=== PATIENT | female | born 1975 | race Caucasian/White ===

== ENCOUNTER 2020-01-04 19:39 | Emergency (ER) | payer OTHER, SELFPAY ==
--- NOTE | ~2020-01-04 | XR_ITS ---
EXAMINATION: XR finger 1st LT min 2V DATE: 01/04/2020 20:00 INDICATION: Left thumb pain. Injury. TECHNIQUE: 3 views of left thumb were obtained. COMPARISON: None. FINDINGS: Bone alignment is normal. No fracture. There is mild osteoarthritis of first interphalangea l joint. There is a laceration of the pulmonary surface of the thumb. IMPRESSION: 1. No fracture or radiopaque foreign body. Reviewed, dictated and finalized at location A.
[2020-01-04 19:42] VITALS: BP 193/105; PULSE 104; RESP 18; TEMP 36.9; O2SAT 100
--- NOTE | 2020-01-04 19:51 | ED.GENADULT ---
HPI - General Adult General Chief complaint: Wound/Laceration Stated complaint: laceration Time Seen by Provider: 01/04/20 19:42 Source: patient Mode of arrival: ambulatory Limitations: no limitations History of Present Illness HPI narrative: Patient is a 44-year-old female who presents to emergency department for evaluation of injury to the left thumb noting she caught the thumb in the door. Patient notes her tetanus is up-to-date. Patient notes moderate aching pain with laceration. Patient presents immediately after the injury denies other complaints Related Data Allergies Allergy/AdvReac Type Severity Reaction Status Date / Time No Known Allergies Allergy Unverified 06/05/19 08:19 Review of Systems Review of Systems: Narrative: CONSTITUTIONAL: Denies fever, chills, or sweats. SKIN: Positive for laceration and contusion MUSCULOSKELETAL: Positive for left THUMB pain NEUROLOGIC: Denies numbness, or weakness. [facility] Past Medical History Medical History (Updated 01/04/20 @ 20:23 by Saad Mckeon PA-C) Hypertension Social History Social History Gender identity (if verbalized by the patient): Female Exam Narrative: Exam Narrative: GENERAL: Well-appearing, well-nourished, and in no acute distress. HEAD: Normocephalic, atraumatic. EYES: PERRLA and EOMI. ENT: Nares clear, no rhinorrhea or epistaxis. Mucous membranes moist. EXTREMITIES: Normal range of motion. No edema. Laceration and contusion of the palmar surface of the left mid thumb laceration is irregular with blood blister distal of the laceration measuring half centimeter SKIN: Warm, dry, no rash. NEURO: No focal deficits. Alert and oriented x3. Neurovascularly intact PSYCH: Normal mood and affect. Course Vital Signs Vital signs: Vital Signs Temperature 98.4 F 01/04/20 19:42 Pulse Rate 104 H 01/04/20 19:42 Respiratory Rate 18 01/04/20 19:42 Blood Pressure 193/105 H 01/04/20 19:42 Pulse Oximetry 100 01/04/20 19:42 Temperature 98.4 F 01/04/20 19:42 Pulse Rate 104 H 01/04/20 19:42 Respiratory Rate 18 01/04/20 19:42 Blood Pressure 193/105 H 01/04/20 19:42 Pulse Oximetry 100 01/04/20 19:42 Procedures Other Procedure Procedure 1: Other Procedure: Patient's wound with blistering and superficial tissue devitalized moved half a centimeter of devitalized tissue with scissors and pickups. Shur-Clens scrub was used antibiotic ointment nonadhesive 4 x 4 and Coban placed post procedure Medical Decision Making Vital Signs Vital Signs: Vital Signs Temperature 98.4 F 01/04/20 19:42 Pulse Rate 104 H 01/04/20 19:42 Respiratory Rate 18 01/04/20 19:42 Blood Pressure 193/105 H 01/04/20 19:42 Pulse Oximetry 100 01/04/20 19:42 Temperature 98.4 F 01/04/20 19:42 Pulse Rate 104 H 01/04/20 19:42 Respiratory Rate 18 01/04/20 19:42 Blood Pressure 193/105 H 01/04/20 19:42 Pulse Oximetry 100 01/04/20 19:42 Imaging Data Radiologist's impression: ITS Impressions Finger X-Ray 01/04/20 20:04 IMPRESSION: 1. No fracture or radiopaque foreign body. Discharge Plan Discharge Clinical Impression: Avulsion of skin Patient Disposition: Home, Self-Care Condition: Stable Instructions: Antibiotic Form, Skin Avulsion (ED) Additional Instructions: Keep wound clean and dry. Do not soak, take baths, or swim until wound is completely healed. If any signs of infection such as redness, swelling, increasing pain, drainage of purulent discharge, streaks up your extremity develop, seek medical attention immediately. Followup with your primary care provider in 7 days for reevaluation as needed [] Follow-up/Referrals: Deyvi,Marcy Nelson MD [Primary Care Provider] -
[2020-01-04 20:31] VITALS: BP 173/98; PULSE 84; RESP 18; O2SAT 98
== END 2020-01-04 20:33 | disposition home or self-care (01) ==
PROVIDERS: Emergency Provider Emergency Medicine; PCP Family Medicine
DX: S61.012A Laceration without foreign body of left thumb without damage to nail, initial encounter (principal); I10 Essential (primary) hypertension; W23.0XXA Caught, crushed, jammed, or pinched between moving objects, initial encounter
CPT/HCPCS: 11042; 73140; 99282

== ENCOUNTER 2021-02-28 00:58 | Emergency (ER) | payer OTHER, SELFPAY ==
--- NOTE | ~2021-02-28 | CT_ITS ---
EXAMINATION: CTA chest PE protocol DATE: 02/28/2021 02:25 INDICATION: Shortness of breath. TECHNIQUE: Computed tomography angiography (CTA) of the chest was performed with 100 mL Omnipaque-350 intravenous contrast timed to evaluate the pulmonary arteries. Coronal maximum intensity projection 3D-reconstructions were created by the technologist. Automated exposure control and iterative reconst ruction technique were employed. The dose-length product was 996.70 mGy-cm. COMPARISON: Chest CT 04/05/2015 FINDINGS: There are centrilobular nodules in right middle lobe and right lower lobe. There are patchy airspace and groundglass opacities in right lower lobe. There is mild atelectasis in lingula. No ple ural effusion. The heart size is normal. No pericardial effusion. There is no pulmonary embolus. Ther e is mild right hilar and mediastinal lymphadenopathy. There are changes of cholecystectomy. There is moderate thoracic spondylosis. IMPRESSION: 1. No pulmonary embolus. Sensitivity is moderately decreased by motion artifact. 2. Mild pneumonia in right middle lobe and right lower lobe. 3. Mild right hilar and mediastinal lymphadenopathy, likely reactive. Reviewed, dictated and finalized at location A. IMPRESSION: 1. No pulmonary embolus. Sensitivity is moderately decreased by motion artifact . 2. Mild pneumonia in right middle lobe and right lower lobe. 3. Mild right hilar and mediastinal lymphadenopathy, likely reactive.
--- NOTE | ~2021-02-28 | XR_ITS ---
EXAMINATION: XR chest 1V portable DATE: 02/28/2021 01:56 INDICATION: Shortness of breath. TECHNIQUE: A single frontal view of the chest was obtained. COMPARISON: Chest 2 views 04/05/2015, chest CT 02/28/2021 FINDINGS: The chest demonstrates clear lungs without pneumonia, pleural effusion, or pneumothorax. Th e heart size is normal. IMPRESSION: 1. No acute cardiopulmonary disease. Reviewed, dictated and finalized at location A.
[2021-02-28 01:01] VITALS: BP 199/121; PULSE 114; RESP 24; TEMP 37; O2SAT 97
--- NOTE | 2021-02-28 01:13 | ECG_ITS ---
Measurements Intervals [place] Rate: 108 P: 14 CA: 133 QRS: -30 QRSD: 92 T: 32 QT: 326 QTc: 438 Interpretive Statements SINUS TACHYCARDIA DELAYED PRECORDIAL R/S TRANSITION VOLTAGE CRITERIA FOR LVH INFERIOR INFARCT, AGE INDETERMINATE BASELINE ARTIFACT- I, II, III, AVR, AVL, AVF, V1-V6 ABNORMAL ECG Electronically Signed On 02-28-2021 6:31:37 CDT by Zane House D.O.
[2021-02-28 01:34] VITALS: O2SAT 98
--- NOTE | 2021-02-28 01:42 | ED.SOB ---
HPI - SOB/Dyspnea General Chief Complaint: Shortness of Breath/Dyspnea Stated Complaint: short of breath Time Seen by Provider: 02/28/21 01:07 Source: patient Mode of arrival: ambulatory Limitations: no limitations History of Present Illness HPI Narrative: Patient is a 45-year-old female complaining of cough, productive, yellowish sputum, accompanied by shortness of breath, chills, subjective fever, nasal congestion that started 2 to 3 days ago. Patient states similar symptoms when she had pneumonia years ago. Patient denies any chest pain, abdominal pain, nausea, vomiting, diarrhea or urinary symptoms. Patient states that her blood pressure is high because she has not taken her blood pressure medications in a long time , noncompliant. Related Data Allergies Allergy/AdvReac Type Severity Reaction Status Date / Time No Known Allergies Allergy Unverified 06/05/19 08:19 Review of Systems Review of Systems: All systems reviewed & are unremarkable except as noted in HPI and below Constitutional: Constitutional: Denies body ache(s), Denies excessive sweating, Denies fatigue, Denies headache(s), Denies lethargy, Denies malaise, Denies weakness and Denies weight loss Eyes: Eyes: Denies blurry vision, Denies change in vision and Denies loss of vision ENT: Denies dizziness, Denies ear discharge, Denies headache(s), Denies lip swelling, Denies epistaxis, Denies nasal congestion, Denies neck pain, Denies throat swelling and Denies tongue swelling Cardiovascular: Cardiovascular: Denies chest pain, Denies chest pain at rest, Denies chest pain with activity, Denies diaphoresis, Denies rapid heart rate, Denies edema, Denies irregular heart rhythm, Denies lightheadedness and Denies palpitations Respiratory: Respiratory: Denies chest congestion and Denies hemoptysis Gastrointestinal: Gastrointestinal: Denies abdominal pain, Denies melena, Denies hematochezia, Denies diarrhea, Denies nausea, Denies vomiting and Denies hematemesis Musculoskeletal: Musculoskeletal: Denies abnormal gait, Denies deformity, Denies joint swelling, Denies limited range of motion, Denies neck pain and Denies numbness Neurologic: Denies Abnormal speech present, Denies abnormal gait, Denies confusion, Denies dizziness, Denies headache(s), Denies focal weakness, Denies loss of vision, Denies numbness, Denies Other visual disturbances, Denies Sensory deficit (Neuro) and Denies weakness Psychiatric: Psychiatric: Denies confusion, Denies depression, Denies auditory hallucinations, Denies homicidal ideation and Denies suicidal ideation Endocrine: Endocrine: Denies cold intolerance, Denies excessive sweating, Denies fatigue, Denies heat intolerance and Denies palpitations Hematologic/Lymphatic: Hematologic/Lymphatic: Denies easy bleeding and Denies easy bruising Allergic/Immunologic: Allergic/Immunologic: Denies lip swelling, Denies throat swelling and Denies tongue swelling PMFSH Past Medical History Medical History (Updated 02/28/21 @ 03:52 by Dieudonne Casanova MD) Hypertension Social History Social History Gender identity (if verbalized by the patient): Female Comments Past medical history: Hypertension Family history: Noncontributory Social history: Non-smoker no EtOH or drug use Exam Const: General: cooperative, comfortable, no acute distress, well developed, alert and awake; No confusion Nutritional Appearance: obese Orientation/consciousness: oriented to person, oriented to place, oriented to time, patient oriented x3 and No confusion Limitations: no limitations HENMT: Head: normal to inspection, normocephalic and atraumatic Ears: hearing grossly normal bilaterally, TM normal on the right and TM normal on the left General nose exam: Normal external nose present, Normal nares present and No nasal discharge present Face and sinus: normal facial exam Mouth: Yes Normal oral and palatal mucosa present, Y
[2021-02-28 01:43] LABS: Anion Gap 6 mmol/L (8-16); Blood Urea Nitrogen 14 mg/dL (7-17); Calcium 9.3 mg/dL (8.4-10.2); Carbon Dioxide 30 mmol/L (22-30); Chloride 102 mmol/L (98-107); Estimated CRCL calculation 96 ml/min; Estimated Glomerular Filt Rate > 60; Glucose 161 mg/dL (65-105); Potassium 4.2 mmol/L (3.4-5.0); Sodium 138 mmol/L (137-145)
[2021-02-28 01:45] VITALS: PULSE 91; RESP 20
[2021-02-28 01:48] LABS: Alveolar/Arterial O2 Gradient 23.5 mmHg; Base Excess ABG 1.2 mEq/l (+/-2.0); Device ROOM AIR; Fractional Inspired Oxygen 21 %; HCO3 ABG 25.3 mEq/l (22.0-26.0); Modified Allen's Test Pass; Oxygen Content ABG 19.9 %vol (16.0-22.0); Oxygen Saturation ABG 96.2 % (95.0-100.0); Oxyhemoglobin 94.4 % THb (90.0-100.0); PCO2 ABG 38.4 mmHg (35.0-45.0); PO2 ABG 80.2 mmHg (80.0-100.0); PO2 FiO2 Ratio Arterial Blood 3.82 %; Site Drawn RIGHT RADIAL; pH ABG 7.436 (7.350-7.450)
[2021-02-28] MEDS: ALBUTEROL SULFATE NEB 2.5 MG/0.5 ML INH 5 MG INHALATION (01:49)
[2021-02-28] MEDS: IPRATROPIUM BR 0.02% INH SOLN 0.5 MG/2.5 ML VIAL INHALATION (01:50)
[2021-02-28 01:53] LABS: Basophils Percent Auto 0.5 % (0.2-1.2); Eosinophils Absolute Auto 0.1 K/mm3 (0-0.3); Eosinophils Percent Auto 1.5 % (0-4.4); Hematocrit 46.8 % (37.0-47.0); Hemoglobin 14.7 g/dL (12.0-15.0); Immature Granulocyte Absolute 0.04 K/mm3 (0.00-0.031); Immature Granulocyte Percent A 0.5 % (0-0.5); Lymphocytes Absolute Auto 2.54 K/mm3 (0.9-3.2); Lymphocytes Percent Auto 28.9 % (18.3-44.2); Mean Corpuscular HGB Conc 31.4 g/dl (32-36); Mean Corpuscular Hemoglobin 27.1 pg (26-34); Mean Corpuscular Volume 86.3 fl (80-100); Mean Platelet Volume 10.3 fl (7.4-10.4); Monocytes Absolute Auto 0.6 K/mm3 (0.1-0.6); Monocytes Percent Auto 6.3 % (2.6-8.5); Neutrophils Absolute Auto 5.5 K/mm3 (1.3-6.7); Neutrophils Percent Auto 62.3 % (45.5-73.1); Platelet Count Result 270 k/mm3 (150-375); Red Blood Count 5.42 M/mm3 (4.2-5.4); Red Cell Distribution Width 14.7 % (11.5-14.5); White Blood Count 8.8 K/mm3 (4.5-10.0)
[2021-02-28 01:55] VITALS: PULSE 112; RESP 20
[2021-02-28 01:55] LABS: NT Pro B Type Natriuretic Pept 73 pg/mL (5-100); Troponin I < 0.012 ng/mL (0.000-0.034)
[2021-02-28 01:57] LABS: INR 0.9; Prothrombin Time 12.4 Seconds (11.1-14.7)
[2021-02-28 01:58] LABS: Partial Thromboplastin Time 28.7 SECONDS (22.3-36.8)
[2021-02-28 02:00] LABS: D Dimer 0.86 ug/mL (<0.48)
[2021-02-28] MEDS: HYDROcodone/acetaminophen (*CRX) 5-325 MG TABLET 1 TAB PO (02:11)
[2021-02-28 02:14] LABS: Lactic Acid Reflex 1.5 mmol/L (0.7-2.1)
[2021-02-28] MEDS: DEXAMETHASONE SOD PHOS INJ 4 MG/ML VIAL 10 MG IV PUSH (02:44)
[2021-02-28 02:49] VITALS: BP 184/99; PULSE 108; RESP 20; O2SAT 96
[2021-02-28] MEDS: hydrALAZINE HCL 20 MG/ML VIAL 10 MG IV PUSH (02:49)
[2021-02-28 04:18] VITALS: BP 193/103; PULSE 108; RESP 22; O2SAT 100
== END 2021-02-28 04:18 | disposition home or self-care (01) ==
PROVIDERS: Emergency Provider Emergency Medicine; PCP Family Medicine
DX: J20.9 Acute bronchitis, unspecified (principal); I10 Essential (primary) hypertension; I16.0 Hypertensive urgency; R00.0 Tachycardia, unspecified; R94.31 Abnormal electrocardiogram [ECG] [EKG]
CPT/HCPCS: 36415; 36600; 71045; 71275; 80048; 82805; 83605; 83880; 84484; 85025; 85380; 85610; 85730; 93005; 94640; 96374; 96375; 99284; A9270; J0360; J1100; Q9967

== ENCOUNTER 2022-06-11 14:01 | Outpatient (CLI) | payer OTHER, SELFPAY ==
--- NOTE | ~2022-06-11 | XR_ITS ---
EXAM: XR knee LT min 4V DATE: 06/11/2022 14:29 HISTORY: PAIN/SWELLING IN LEFT KNEE JOINT . COMPARISON: 08/14/2017. FINDINGS: Decreased mineralization. No fracture or dislocation. No lytic or blastic lesion. Moderate medial joint space narrowing. Tricompartmental osteophytosis, severe in the patellofemoral and media l compartments. No erosion or periosteal change. Ossified osteochondral bodies posteriorly, likely wi thin a Raman's cyst. IMPRESSION: No acute osseous finding. Severe tricompartmental osteoarthritis. Reviewed, dictated and finalized at location K.
== END 2022-06-11 14:02 | disposition home or self-care (01) ==
PROVIDERS: PCP Physician Assistant; Visit Provider Physician Assistant
DX: M17.12 Unilateral primary osteoarthritis, left knee (principal)
CPT/HCPCS: 73564

== ENCOUNTER 2022-07-16 11:47 | Outpatient (CLI) | payer OTHER, SELFPAY ==
--- NOTE | ~2022-07-16 | XR_ITS ---
EXAM: XR shoulder RT min 2V DATE: 07/16/2022 13:35 HISTORY: PAIN IN RIGHT SHOULDER JOINT . COMPARISON: 06/05/2019. FINDINGS: Decreased mineralization. No fracture or dislocation. No lytic or blastic lesion. Moderate acromioclavicular hypertrophy, with inferior osteophytosis. Moderate glenohumeral osteophytosis. Sub acromial narrowing. Potential loose bodies are previous described are less well seen in today's study . No erosion or periosteal change. Soft tissues within normal limits. IMPRESSION: Osseous outlet compromise. Moderate acromioclavicular and glenohumeral degenerative burgos e. Reviewed, dictated and finalized at location K. IMPRESSION: Osseous outlet compromise. Moderate acromioclavicular and glenohume ral degenerative change.
--- NOTE | ~2022-07-16 | XR_ITS ---
EXAM: XR lumbar spine 2-3V DATE: 07/16/2022 12:22 HISTORY: M54.40 low back pain, unspecified. NKI . COMPARISON: 08/14/2017. FINDINGS: Cholecystectomy clips. Hypoplastic ribs at T12. Partial L5 sacralization on the right. 5 no nrib-bearing lumbar-type vertebral bodies. Pedicles intact. 6 mm anterolisthesis at L4-5. Vertebral b baldemar heights preserved. Moderate disc space narrowing at L4-5. Rudimentary versus fused disc at L5-S1. Multilevel facet hypertrophy and sclerosis. No fracture or dislocation. IMPRESSION: Transitional anatomy. Grade 1 anterolisthesis and moderate degenerative disc disease at L 4-5. Moderate multilevel facet arthropathy. Reviewed, dictated and finalized at location K. IMPRESSION: Transitional anatomy. Grade 1 anterolisthesis and moderate degenera tive disc disease at L4-5. Moderate multilevel facet arthropathy.
== END 2022-07-16 11:48 | disposition home or self-care (01) ==
LOC: ANHIMG 11:53
PROVIDERS: PCP Physician Assistant; Visit Provider Physician Assistant
DX: M51.36 Other intervertebral disc degeneration, lumbar region (principal); M19.011 Primary osteoarthritis, right shoulder
CPT/HCPCS: 72100; 73030

== ENCOUNTER 2022-08-01 10:15 | Outpatient (CLI) | payer OTHER, SELFPAY ==
--- NOTE | ~2022-08-01 | CT_ITS ---
EXAMINATION: CT abdomen wo/w con INDICATION: Mass of the left adrenal gland TECHNIQUE: Computed tomographic images of the abdomen were obtained prior to then following the admin istration of 100 cc of Omnipaque 350 intravenous contrast. The dose-length product (DLP) was 2583.22 mGy-cm. Automated exposure control and iterative reconstruction technique were employed. COMPARISON: 02/28/2021 FINDINGS: The lung bases are clear. The heart size is normal. There is a 10 mm low-density mass of th e left adrenal gland, consistent with an adenoma. The right adrenal gland is normal. The gallbladder is surgically absent. There is focal fatty infiltration of the liver near the ligamentum teres. The s pleen, pancreas, and kidneys are unremarkable. There are no pathologically enlarged abdominal lymph n odes. There is no free intraperitoneal gas or evidence of bowel obstruction. There is a moderate volu me of liquid stool in the colon which could reflect diarrhea. IMPRESSION: 1. 10 mm left adrenal adenoma. 2. Large time of liquid stool in the colon which could reflect diarrhea. Reviewed, dictated and finalized at location B.
[2022-08-01 10:48] LABS: Estimated Glomerular Filt Rate 53
== END 2022-08-01 10:16 | disposition home or self-care (01) ==
PROVIDERS: PCP Physician Assistant; Visit Provider Physician Assistant
DX: E27.8 Other specified disorders of adrenal gland (principal); D35.02 Benign neoplasm of left adrenal gland
CPT/HCPCS: 74170; Q9967

== ENCOUNTER 2023-03-13 14:56 | Emergency (ER) | payer OTHER, SELFPAY ==
--- NOTE | 2023-03-13 15:01 | ED.EAR ---
HPI - Ear Problem General Chief complaint: Ear Stated complaint: Right Ear Irritation Time Seen by Provider: 03/13/23 15:16 Source: patient and RN notes reviewed Mode of arrival: ambulatory Limitations: no limitations History of Present Illness HPI Narrative: 47-year-old female presents concern with right ear pain. She reports pain started about 2 weeks ago but is increasing and now feels like it is went ruptures. She reports history of problems with that ear in the past. She denies fever, chills, sweats. Denies drainage from the ear MD Complaint: ear pain Related Data Home Medications Medication Instructions Recorded Confirmed dulaglutide 0.75 mg/0.5 mL mg subcut 03/13/23 [facility] hydrochlorothiazide 25 mg tablet mg 03/13/23 metformin 500 mg tablet,extended mg PO 03/13/23 release 24 hr Allergies Allergy/AdvReac Type Severity Reaction Status Date / Time No Known Allergies Allergy Verified 03/13/23 15:11 Review of Systems Review of Systems: CONSTITUTIONAL: Denies malaise, chills, sweats, or fever. EYES: Denies visual changes, redness, or discharge. ENT: Denies rhinorrhea, congestion, sinus pain, and sore throat. Reports right ear pain, sneezing CARDIOVASCULAR: Denies chest pain, palpitations, or edema. RESPIRATORY: Denies cough. Denies dyspnea. GASTROINTESTINAL: Denies abdominal pain, nausea, vomiting, diarrhea SKIN: Denies rash or itching. MUSCULOSKELETAL: Denies myalgia. NEUROLOGIC: Denies headache. All systems reviewed & are unremarkable except as noted in HPI and below PMFSH Past Medical History Medical History (Updated 03/13/23 @ 15:22 by Zamzam Vivas NP) Hypertension Social History Social History Gender identity (if verbalized by the patient): Female Comments At time of signature, agree with nursing past medical, surgical, social and family history. There is no relevant family history pertinent to the presenting complaint Exam Narrative: GENERAL: Well-appearing, well-nourished, and in no acute distress. HEAD: Normocephalic EYES: PERRLA, conjunctivae clear ENT: Nares clear, clear discharge. Mucous membranes moist. Left tM pearly workman with dull light reflex, right TM erythematous; no tragal tenderness. Oropharynx not erythematous without lesions. Tonsils not enlarged and without exudate, no drooling, no hoarseness, no trismus, uvula midline. NECK: Supple. No lymphadenopathy CHEST: Clear to auscultation, breath sounds equal. No wheezing, rhonchi, rales, or stridor. No respiratory distress, speaks in full sentences. HEART: Regular rate and rhythm. No murmur heard. SKIN: Warm, dry, no rash. NEURO: Alert and oriented x3. PSYCH: Normal mood and affect Course Course Emergency Course: Patient is aware of diagnosis, understands and agrees to treatment plan. Anticipatory guidance given. Patient agrees to follow-up as directed and is aware of reasons to seek care at the emergency department. Portions of this record may have been created with voice recognition software Level of Care: Express Care Visit Vital Signs Vital signs: Reviewed. Medical Decision Making MDM Narrative Medical decision making narrative: Differential diagnosis considered: Schwartz virus, strep pharyngitis, allergic rhinitis, upper respiratory tract infection, sinusitis, rhinosinusitis, nasopharyngitis. viral pharyngitis, otitis media, otitis externa, otitis effusion, cerumen impaction, foreign body. Exam findings show no acute concerns or changes; patient is non-toxic appearing and is in no distress. Patient is appropriate for outpatient treatment and follow-up. Critical Care Time Critical Care Time Critical Care Time: No Discharge Plan Discharge Clinical Impression: Otitis media Patient Disposition: Home, Self-Care Condition: Stable Instructions: Ear Infection (ED) Additional Instructions: T
--- NOTE | 2023-03-13 15:10 | PC.NURSE ---
Pt BP elevated, states she is non-compliant with her medications.
[2023-03-13 15:11] VITALS: BP 157/104; PULSE 101; RESP 16; TEMP 36.7; O2SAT 97
[2023-03-13 15:12] VITALS: BP 157/104; PULSE 101; RESP 16; TEMP 36.7; O2SAT 16
== END 2023-03-13 15:26 | disposition home or self-care (01) ==
PROVIDERS: Emergency Provider Nurse Practitioner; PCP Physician Assistant
DX: H66.91 Otitis media, unspecified, right ear (principal); I10 Essential (primary) hypertension
CPT/HCPCS: 99213; G0463

== ENCOUNTER 2023-03-19 10:15 | Emergency (ER) | payer OTHER, SELFPAY ==
[2023-03-19 10:22] VITALS: BP 135/93; PULSE 98; RESP 16; TEMP 36.6; O2SAT 99
--- NOTE | 2023-03-19 10:33 | ED.SKABFB ---
HPI - Skin/Abscess/Foreign Bdy General Chief complaint: Skin/Abscess/Foreign Body Stated complaint: Rash Source: patient and RN notes reviewed History of Present Illness HPI narrative: 47 yo F presents to urgent care with complaints of poison adore rash since yesterday. Pt admits to being outside in the [place] and working with brush recently. Pt states she gets this all the time and it spreads quickly on her. Pt was here 4 days ago and dx with AOM and given Amoxicillin. Pt states she has developed a runny nose, sore throat, and continues to have right ear discomfort. Denies any fevers, chills, chest pain, SOB, or vomiting. Related Data Home Medications Medication Instructions Recorded Confirmed dulaglutide 0.75 mg/0.5 mL 0.75 mg subcut WEEKLY 03/13/23 03/19/23 subcutaneous pen injector ([facility]) hydrochlorothiazide 25 mg tablet 25 mg PO DAILY 03/19/23 03/19/23 metformin 500 mg tablet,extended 500 mg PO DAILY 03/19/23 03/19/23 release 24 hr Allergies Allergy/AdvReac Type Severity Reaction Status Date / Time No Known Allergies Allergy Verified 03/19/23 10:25 Review of Systems Review of Systems: Pertinent positives and pertinent negatives per HPI. [facility] Past Medical History Medical History (Updated 03/19/23 @ 10:38 by Nohemy Uriostegui APRN) Hypertension Social History Social History Gender identity (if verbalized by the patient): Female Comments At the time of my signature, I reviewed and agree with the nursing past medical, surgical, social, and family history. There is no relevant family history pertinent to the patient complaint. Exam Narrative: GENERAL: This is a well-nourished, well-developed patient, in no apparent distress. HEAD: normocephalic, atraumatic. EYES: Sclera clear/white. Vision is grossly intact. EARS: External ears normal, auditory canals clear and without drainage, TMs normal without perforation. Hearing grossly intact. NOSE: External nose normal with no obvious nasal discharge, nares without redness, no rhinorrhea. THROAT: Mucous membranes moist, posterior pharynx clear. NECK: Neck supple, non-tender without lymphadenopathy, masses or thyromegaly. CARDIOVASCULAR: Regular rate and rhythm without murmurs, gallops, or rubs. RESPIRATORY: Clear to auscultation. Breath sounds equal bilaterally. No wheezes, rales, or rhonchi. SKIN: erythremic, raised, areas, various places on body, neck, and face. no drainage. NEURO: awake, alert, and oriented to person, place and time. There were no obvious focal neurologic abnormalities. EXTREMITIES: No clubbing, cyanosis, or edema. No joint tenderness, effusion, or edema noted. BACK: Nontender without deformity or crepitus. No flank tenderness. Course Course Level of Care: Express Care Visit Vital Signs Vital signs: Vital Signs Temperature 97.9 F 03/19/23 10:22 Pulse Rate 98 03/19/23 10:22 Respiratory Rate 16 03/19/23 10:22 Blood Pressure 135/93 H 03/19/23 10:22 Pulse Oximetry 99 03/19/23 10:22 Oxygen Delivery Room Air 03/19/23 10:22 Temperature 97.9 F 03/19/23 10:22 Pulse Rate 98 03/19/23 10:22 Respiratory Rate 16 03/19/23 10:22 Blood Pressure 135/93 H 03/19/23 10:22 Pulse Oximetry 99 03/19/23 10:22 Oxygen Delivery Room Air 03/19/23 10:22 Reviewed MDM - Skin/Abscess/Foreign Bdy MDM Narrative Medical decision making narrative: Prevention is always better than treatment. Learn to identify poison adore, oak, and sumac and avoid it. Wear long sleeves, long pants, shoes, and socks. If you touched the plant, try to keep your hands away from your eyes, mouth, and face. Wash the skin thoroughly with soap and cool water as soon as possible. Scrub under the fingernails with a brush to prevent spreading of the resin to other parts of the body by touching or scratching. Remember to wash any clothing with soap and hot water as the
[2023-03-19] MEDS: methylPREDNISolone SOD SUCC 125 MG VIAL IM (10:53)
== END 2023-03-19 10:56 | disposition home or self-care (01) ==
PROVIDERS: Emergency Provider Nurse Practitioner Family; PCP Physician Assistant
DX: L25.9 Unspecified contact dermatitis, unspecified cause (principal); I10 Essential (primary) hypertension
CPT/HCPCS: 96372; 99213; G0463; J2930

== ENCOUNTER 2024-01-13 00:22 | Emergency (ER) | payer OTHER, SELFPAY ==
[2024-01-13 00:25] VITALS: BP 156/90; PULSE 97; RESP 20; TEMP 36.8; O2SAT 98
--- NOTE | 2024-01-13 00:56 | ED.EAR ---
HPI - Ear Problem General Chief complaint: Ear Stated complaint: ear infection Time Seen by Provider: 01/13/24 00:31 Source: patient Mode of arrival: ambulatory Limitations: no limitations History of Present Illness HPI Narrative: This is a 48 year old female that presents to the ER for right ear pain. Ongoing over the last 4 days. Reports congestion. Denies fever or drainage. Related Data Home Medications Medication Instructions Recorded Confirmed dulaglutide 0.75 mg/0.5 mL 0.75 mg subcut WEEKLY 03/13/23 03/19/23 subcutaneous pen injector (Trulicity) hydrochlorothiazide 25 mg tablet 25 mg PO DAILY 03/19/23 03/19/23 metformin 500 mg tablet,extended 500 mg PO DAILY 03/19/23 03/19/23 release 24 hr Allergies Allergy/AdvReac Type Severity Reaction Status Date / Time No Known Allergies Allergy Verified 03/19/23 10:25 Review of Systems Review of Systems: CONSTITUTIONAL: Denies fever ENT: Reports otalgia. All systems reviewed & are unremarkable except as noted in HPI and below PMFSH Past Medical History Medical History (Updated 01/13/24 @ 01:08 by Meeta Lawson PA-C) History of diabetes mellitus Hypertension Social History Social History (Updated 01/13/24 @ 00:57 by Meeta Lawson PA-C) Substance use: never Gender identity (if verbalized by the patient): Female Exam Narrative: GENERAL: Well-appearing, well-nourished, and in no acute distress. HEAD: Normocephalic, atraumatic. EYES: EOMI. ENT: Nares clear, no rhinorrhea or epistaxis. Mucous membranes moist. Oropharynx without tonsillar hypertrophy exudate or other lesions. Left TM pearly workman non-bulging. Fluid behind the right TM which is erythematous NECK: Supple. No adenopathy or masses. EXTREMITIES: Normal range of motion. No edema. SKIN: Warm, dry, no rash. NEURO: No focal deficits. Alert and oriented x3. PSYCH: Normal mood and affect Course Course Emergency Course: Patient agrees with plan of care Vital Signs Vital signs: Vital Signs Temperature 98.2 F 01/13/24 00:25 Pulse Rate 97 01/13/24 00:25 Respiratory Rate 20 01/13/24 00:25 Blood Pressure 156/90 H 01/13/24 00:25 Pulse Oximetry 98 01/13/24 00:25 Oxygen Delivery Room Air 01/13/24 00:25 Temperature 98.2 F 01/13/24 00:25 Pulse Rate 97 01/13/24 00:25 Respiratory Rate 20 01/13/24 00:25 Blood Pressure 156/90 H 01/13/24 00:25 Pulse Oximetry 98 01/13/24 00:25 Oxygen Delivery Room Air 01/13/24 00:25 Medical Decision Making MDM Narrative Medical decision making narrative: Patient presents the emergency department for right ear pain ongoing over the last 4 days. She is afebrile nontoxic appearing. Exam is consistent otitis media. Will be started on oral antibiotics. She is to follow up with her primary provider. She was given warnings to return to the ER Differential Diagnosis Differential Diagnosis: otitis media, otitis externa Vital Signs Vital Signs: Vital Signs Temperature 98.2 F 01/13/24 00:25 Pulse Rate 97 01/13/24 00:25 Respiratory Rate 20 01/13/24 00:25 Blood Pressure 156/90 H 01/13/24 00:25 Pulse Oximetry 98 01/13/24 00:25 Oxygen Delivery Room Air 01/13/24 00:25 Temperature 98.2 F 01/13/24 00:25 Pulse Rate 97 01/13/24 00:25 Respiratory Rate 20 01/13/24 00:25 Blood Pressure 156/90 H 01/13/24 00:25 Pulse Oximetry 98 01/13/24 00:25 Oxygen Delivery Room Air 01/13/24 00:25 Critical Care Time Critical Care Time Critical Care Time: No Discharge Plan Discharge Clinical Impression: Otitis media Qualifiers: Otitis media type: unspecified Chronicity: acute Qualified Code(s): H66.90 - Otitis media, unspecified, unspecified ear Patient Disposition: Home, Self-Care Condition: Stable Instructions: Antibiotic Form, Earache (ED) Additional Instructions: Return to the emergency department for worsening symptoms or any other concerns Remain we
[2024-01-13] MEDS: AMOXICILLIN/CLAVULANATE K 875-125 MG TAB 1 TABLET PO (01:03)
== END 2024-01-13 01:35 | disposition home or self-care (01) ==
PROVIDERS: Emergency Provider Physician Assistant; PCP Physician Assistant
DX: H66.91 Otitis media, unspecified, right ear (principal); I10 Essential (primary) hypertension; E11.9 Type 2 diabetes mellitus without complications
CPT/HCPCS: 99283; A9270

== ENCOUNTER 2025-03-02 13:38 | Outpatient (CLI) | payer OTHER, SELFPAY ==
--- NOTE | ~2025-03-02 | MM_ITS ---
EXAMINATION: MM diagnostic hamlet BI w heydi HISTORY: Breast pain TECHNIQUE: Additional 3-D tomosynthesis images of the breasts were performed and synthetic 2-D images were generated. CAD analysis was submitted and interpreted. COMPARISON: None BREAST PARENCHYMAL COMPOSITION: Not dense: There are scattered areas of fibroglandular density. FINDINGS: There is no mammographic evidence for malignancy in either breast. There are no suspicious masses, calcifications or architectural distortion to suggest malignancy. IMPRESSION: 1. No mammographic evidence for malignancy in either breast. 2. Routine yearly screening mammogram and regular clinical breast examination are recommended. BI-RADS Category 1: Negative Reviewed, dictated and finalized at location B. IMPRESSION: 1. No mammographic evidence for malignancy in either breast. 2. Routine yearly screening mammogram and regular clinical breast examination a re recommended. BI-RADS Category 1: Negative
--- NOTE | ~2025-03-02 | US_ITS ---
EXAMINATION: US carotid duplex BI DATE: 03/02/2025 15:50 INDICATION: Carotid atherosclerosis TECHNIQUE: Grayscale, color Doppler, and pulsed Doppler images of the cervical carotid arteries were obtained. The degree of vessel stenosis is placed in one of the following categories: normal, <50%, 5 0-69%, >=70% but less than near-occlusion, near-occlusion, or total occlusion. Note that percent sten osis relative to normal distal artery lumen diameter is indirectly measured from velocity measurement s as described by Sudhakar, et al. Radiology 2003; 229:340-346. COMPARISON: None. FINDINGS: RIGHT: The right common carotid artery (CCA) peak systolic velocity (PSV) is 105 cm/s. The right internal ca rotid artery (ICA) PSV is 90 cm/s. The right ICA end-diastolic velocity (EDV) is 28 cm/s. The right I CA/CCA PSV ratio is 0.9. Grayscale and color Doppler images yield an estimate of <50% diameter reduct ion from plaque in the ICA. The external carotid artery (ECA) PSV is 67 cm/s. There is antegrade flow in the right vertebral artery. LEFT: The left CCA PSV is 104 cm/s. The left ICA PSV is 78 cm/s. The left ICA EDV is 28 cm/s. The left ICA/ CCA PSV ratio is 0.8. Grayscale and color Doppler images yield an estimate of <50% diameter reduction from plaque in the ICA. The ECA PSV is 76 cm/s. There is antegrade flow in the left vertebral artery . IMPRESSION: 1. <50% stenosis in the right internal carotid artery. 2. <50% stenosis in the left internal carotid artery. Reviewed, dictated and finalized at location A.
--- NOTE | ~2025-03-02 | US_ITS ---
EXAMINATION: US venous doppler [facility] DATE: 03/02/2025 15:50 INDICATION: Pain TECHNIQUE: Grayscale ultrasound images without and with compression and Doppler ultrasound images of the left lower extremity veins were obtained. COMPARISON: None. FINDINGS: The visualized portions of left common femoral vein, profunda (deep) femoral vein, femoral vein, popl iteal vein, peroneal veins, posterior tibial veins, and greater saphenous vein outflow are patent. IMPRESSION: 1. No deep venous thrombosis. Reviewed, dictated and finalized at location A.
--- OUTSIDE RECORDS SUMMARY | 2025-03-02 13:45 | XMS_ITS | Encounter Summary ---
Author Organization [facility] Address [address] [place] [address] Care Team Providers Care Management Analyst Name Role Phone Marcy Carnes MD Primary Care Provider [phone] Reason for Visit * Reason Onset Date Comments Follow-up 06/04/2010 Called [facility] clin ic to schedule pt's. pap smear; no appointments available for . New calendar for August will be out in June; Isabell Francois will then schedule pt. for August WWE/Pap smear. Pt. informed. Encounter Details Date Type Department Care Team (Late st Contact Info) Description 06/04/2010 Telephone [facility] [address] [place] [address] [address] [place], [place] [id number] Sheron Mcduffie RN Follow-up (Called [facility] clinic to schedule pt's. pap smear; no appointments available for . New calendar for August will be out in June; Isabell Francois will then schedule pt. for August WWE/Pap smear. Pt. 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
--- OUTSIDE RECORDS SUMMARY | 2025-03-02 13:45 | XMS_ITS | CONTINUITY OF CARE DOCUMENT ---
Author Name madhu leung Address Unknown Organization [facility] Address [address] [place] [address] Phone [phone] Care Team Providers Care Smokehouse Operator Name Role Phone Robbin BUI, Erlin Unavailable LORRI CORLEY NP Unavailable LORRI CORLEY NP Unavailable [phone] [employer] Payer name Policy type / Coverage type [place] [employer] party ID [employer] Medicaid [id number]
--- OUTSIDE RECORDS SUMMARY | 2025-03-02 13:46 | XMS_ITS | Encounter Summary ---
Author Organization [facility] Address [address] [place] [address] Care Team Providers Care Fish Technologist Name Role Phone Marcy Carnes MD Primary Care Provider [phone] Encounter Details Date Type Department Care Team (Late st Contact Info) Description 12/12/1999 Outpatient Historical [facility] 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
--- OUTSIDE RECORDS SUMMARY | 2025-03-02 13:46 | XMS_ITS | Encounter Summary ---
Author Organization [facility] Address [address] [place] [address] Care Team Providers Care Hand Mica Plate Layer Name Role Phone Marcy Carnes MD Primary Care Provider [phone] Encounter Details Date Type Department Care Team (Late st Contact Info) Description 11/28/1999 Outpatient Historical [facility] 

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
--- OUTSIDE RECORDS SUMMARY | 2025-03-02 13:46 | XMS_ITS | Encounter Summary ---
Author Organization [facility] Address [address] [place] [address] Care Team Providers Care Perl Software Engineer Name Role Phone Marcy Carnes MD Primary Care Provider Encounter Details Date Type Department Care Team (Late st Contact Info) Description 02/05/2024 Refill ER at [facility] [address] [place] [address] [place] [address] [place] [phone] Social History Tobacco Use Types Packs/Day Years Used Date Smoking Tobacco: Never Smokeless Tobacco: Never Alcohol Use Standard Drinks/Week Comments No 0 (1 standard drink = 0.6 oz pur e alcohol) Comments No Sex and Gender Information Value Date Recorded Sex Assigned at Female 06/09/2022 9:44 AM CDT 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 Answer Date of Assessment Author No 06/16/2018 5:28 PM Soo Salvador RN * Is person blind or have serious difficulty seeing? Answer Date of Assessment Author No 06/16/2018 5:28 PM CHENT Soo Peacock RN * Does person have serious difficulty walking/climbing stairs? Answer Date of Assessment Author Yes 06/16/2018 5:28 PM Soo Salvador RN * Does person have difficulty dressing/bathing? Answer Date of Assessment Author No 06/16/2018 5:28 PM Soo Salvador RN * Does person have difficulty doing errands alone? Answer Date of Assessment Author No 06/16/2018 5:28 PM Soo Salvador RN documented as of this encounter Mental Status * Does person have difficulty concentrating/remembering/making decisions? Answer Entry Date Author No 06/16/2018 5:28 PM Soo Salvador RN documented in this encounter Plan of Treatment Not on file documented as of this encounter Visit Diagnoses Not on filedocumented in this encounter Care Teams Perl Software Engineer Relationship Specialty Start Date End Date Marcy Carnes MD [address] [place] [phone] PCP - General Family Medicine 02/17/19 documented as of this encounter
--- OUTSIDE RECORDS SUMMARY | 2025-03-02 13:46 | XMS_ITS | Clinical Summary ---
Author Organization [facility] [address] Address [address] [place] [address] Care Team Providers Care Audit Clerk Name Role Phone Marcy Carnes MD Primary Care Provider [phone] Allergies No known active allergies Medications losartan (COZAAR) 50 mg tablet Take 50 mg by mouth. 06/18/2018 Active potassium chloride (KLOR-CON) 10 mEq Extended Release tablet Take 10 mEq by mouth. Active hydroCHLOROthia zide (MICROZIDE) 12.5 mg capsule Take 12.5 mg by mouth daily. Active Blood-Glucose Meter use as directed 1 Each 01/07/2022 Active blood sugar diagnostic Strip One Touch Verio Flex 100 Strip 01/07/2022 Active lancets One Touch Verio Flex 100 Each 01/07/2022 Active metFORMIN (GLUCOPHAGE XR) 500 mg Extended Release 24 hour tablet Take 1 Tablet (500 mg) by mouth daily with breakfast. 10 Tablet 3 01/07/2022 Active lidocaine (LIDODERM) 5 % Adhesive Patch, Medicated Apply 1 Patch to affected area every 24 hours. 10 Patch 01/07/2022 Active Active Problems Problem Noted Date Diagnosed Date Chest pain 01/06/2022 Benign hypertension 01/06/2022 Pulmonary hypertension 01/06/2022 Cardiomegaly 01/06/2022 DM (diabetes mellitus), type 2 01/06/2022 Hyperthyroidism 01/06/2022 Nonhealing ulcer of right lower leg 01/06/2022 Noncompliance with medications 01/06/2022 Family History Medical History Relation Name Comments Diabetes Father Relation Name Status Comments Father Alive Mother Social History Tobacco Use Types Packs/Day Years Used Date Smoking Tobacco: Never Smokeless Tobacco: Never Alcohol Use Standard Drinks/Week Comments Not Currently 0 (1 standard drink = 0.6 oz pur e alcohol) wine at synagogue Comments No Sex and Gender Information Value Date Recorded Sex Assigned at Not on file Legal Sex Female 4:15 AM [employer]LECTRONIC [employer] Gender Identity Not on file Sexual Orientation Not on file Last Filed Vital Signs Vital Sign Reading Time Taken Comments Blood Pressure 152/103 06/17/2024 12:38 AM CDT Pulse 89 01/07/2022 1:30 AM CDT Temperature 36.9 C (98.4 F) 06/17/2024 12:38 AM CDT Respiratory Rate 18 06/17/2024 12:38 AM CDT Oxygen Saturation 99% 06/17/2024 12:38 AM CDT Inhaled Oxygen Concentration - - Weight 117.9 kg (260 lb) 06/17/2024 12:38 AM CDT Height 167.6 cm (5' 6 ) 06/17/2024 12:38 AM CDT Body Mass Index 41.97 06/17/2024 12:38 AM CDT Plan of Treatment Health Maintenance Due Date Last Done Comments DIABETES ANNUAL FOOT EXAM 1991 DIABETES ANNUAL RETINAL EXAM 1991 DIABETES MICROALBUMIN ANNUAL SCREEN 1991 HEPATITIS B VACCINES (1 of 3 - 19+ 3-dose series) 1992 HPV/Cotest (21-29) 1994 CERVICAL CANCER SCREENING 2003 HPV/Cotest (30-65) 2003 PAP SMEAR 2003 COLORECTAL SCREENING 2018 Colorectal Cancer Screening 2018 FIT-DNA Q 3 years 2018 FIT/FOBT Q 1 year 2018 Flex Sig/CT Colonography Q 5 years 2018 LDL CHOLESTEROL ANNUAL 01/07/2023 01/07/2022 ZOSTER VACCINE (1 of 2) 2023 INFLUENZA VACCINE (#1) 2024 DIABETES HBA1C Q 6 MONTHS 08/26/2024 02/24/2024, BREAST CANCER SCREENING 11/16/2024 11/16/19 24, 11/16/2023, 08/10/2021, Additional history exists DTAP/TDAP/TD VACCINES (3 - T d or Tdap) 02/14/2029 02/14/2019, 02/07/2019 Procedures Procedure Name Priority Date/Time Associated Diagnosis Comments LIPID RFLX Routine 01/07/2022 11:52 AM CDT HEMOGLOBIN A1C Routine 01/06/2022 10:32 AM CDT from Last 3 Months or Most Recently Relevant to Health Maintenance Results * (ABNORMAL) LIPID RFLX (01/07/2022 11:52 AM CDT) CHOLESTEROL 149 <200 mg/dL 01/07/2022 1:02 PM CDT [facility] [address] [employer] Organization [facility] TRIGLYCERIDE 179(H) <150 mg/dL 01/07/2022 1:02 PM CDT [facility] HDL 31(L) 40 - 59 mg/dL 01/07/2022 1:02 PM CDT [facility] LDL CALCULATED 82 <100 mg/dL 01/07/2022 1:02 PM CDT [facility] NON-HDL CHOLESTEROL 118 <130 mg/dL 01/07/2022 1:02 PM T [facility] Blood Venipuncture / Unknown 01/07/2022 11:52 AM CDT 01/07/2022 12:41 PM CDT [facility] - 01/07/2022 1:02 PM CDT TOTAL CHOLESTEROL mg/dL Desirable <200 Borderline high 200-239 High >=240 TRIGLYCERIDES mg/dL Normal <150 Borderline high 150-199 High 200-499 Very high >=500 HDL CHOLESTEROL mg/dL Low <40 Normal 40-59 Desirable >=60 NON HDL CHOLESTEROL mg/dL Optimal <130 Near Optimal 130-159 Borderline High 160-189 Very High >=190 CALCULATED LDL mg/dL LDL <70, OPTIMAL if have Atherosclerotic cardiovascular disease (ASCVD) or intermediate or higher (>7.5%) 10 year risk of ASCVD including most adults with diabetes. LDL <100, Optimal in adult patients with low (<7.5%) 10 year ASCVD risk LDL 100-160, Suboptimal LDL >160, High LDL >190, Very high ATPIII Guidelines Reference Ranges for Lipid Panels (NCEP/AMA) . Cielo Muñiz NP CHEMISTRY ORDERABLES Final Resul t [facility]# [id number] [place] [address] * (ABNORMAL) HEMOGLOBIN A1C (01/06/2022 10:32 AM CDT) HEMOGLOBIN A1C 7.7(H) <=5.6 % 01/06/2022 4:34 PM CDT [facility] EST. AVG GLUCOSE, A1C 174 mg/dL 01/06/2022 4:34 PM CDT [facility] [address] [employer] Organization [facility] Blood Venipuncture / Unknown 01/06/2022 10:32 AM CDT 01/06/2022 10:46 AM CDT Narrative [facility] [address] [employer] Organization [facility] - 01/06/2022 4:34 PM CDT HGB A1C INTERPRETATION NORMAL: <5.7% PRE-DIABETES: 5.7 - 6.4% DIABETES: 6.5% OR GREATER Cielo Muñiz NP CHEMISTRY ORDERABLES Final Resul t Performing Organization Address City/[facility] Co de Phone Number [facility] [address] [employer] Organization [facility]# [id number] [place] [address] from Last 3 Months or Most Recently Relevant to Health Maintenance Insurance [employer] [place] [employer] Advance Directives For more information, please contact: [phone] * Full Code (Latest Code Status on File) Date Activated Date Inactivated Comments 01/06/2022 4:12 PM 01/07/2022 4:15 PM Care Teams Audit Clerk Relationship Specialty Start Date End Date Marcy Carnes MD PCP - General Family Practice 06/19/19
--- OUTSIDE RECORDS SUMMARY | 2025-03-02 13:46 | XMS_ITS | Data Portability ---
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 Role Phone KARISSA YATES Primary Care Provider Assessment Encounter Date Assessment Date Assessment LastModified by Organization Details LastModified Time 11/19/2023 11/19/2023 vision exam 10/2022 Not available 11/19/2023 12:56:21 Plan of Treatment Reminders Order Date Submit Date Provider Last Modified By Organization Details Last Modified Time Details Appointments ANY 15 2024 01:00P M RENU CURTIS Not available Not available Not available Lab CMP, serum or plasma 2024 025 [facility], [address], [place], [address], 01/04/2025 12:13:29 lipid panel, serum 2024 025 [facility], [address], [place], [address], 01/04/2025 12:13:28 HbA1c (hemoglob in A1c), blood 2024 025 [facility], [address], [place], [address], 01/04/2025 12:13:31 albumin/c reatinine , mass ratio, urine 2024 025 [facility], [address], [place], [address], 01/04/2025 12:13:27 CBC w/ auto diff 2024 025 [facility], [address], [place], [address], 01/04/2025 12:13:32 CMP, serum or plasma 2023 024 [email or web address] [facility], [address], [place], [address], 03/08/2024 08:29:57 lipid panel, serum 2023 024 [facility], [address], [place], [address], 03/08/2024 08:29:58 albumin/c reatinine , mass ratio, urine 2023 024 [facility], [address], [place], [address], 03/08/2024 08:29:58 HbA1c (hemoglob in A1c), blood 2023 024 [email or web address] [facility], [address], [place], [address], 03/08/2024 08:29:58 noninvasi ve colorecta l cancer DNA + occult blood screening , QL, stool 2023 024 [facility] (Cologuard Orders Only), [address], [address], [place], [address], 02/14/2025 13:40:37 CBC w/ auto diff 2023 024 [email or web address] [facility], [address], [place], [address], 03/08/2024 08:29:58 TSH + free T4, serum 2023 024 [email or web address] [facility], [address], [place], [address], 03/08/2024 08:29:58 vitamin D, 25-hydrox y, total, serum 2023 024 [email or web address] [facility], [address], [place], [address], 10/14/2023 11:01:32 CMP, serum or plasma 2023 024 [facility], [address], [place], [address], 10/15/2023 09:15:55 lipid panel, serum 2023 024 [facility], [address], [place], [address], 10/15/2023 09:15:54 albumin/c reatinine , mass ratio, urine 2023 024 [email or web address] [facility], [address], [place], [address], 02/15/2024 11:30:32 HbA1c (hemoglob in A1c), blood 2023 024 [email or web address] In-Office Order, Internal Use Only DO Not Attach Compendium DO Not Attach Compendium, Do Not Delete/merge, [id number] 10/14/2023 11:01:39 Referral physical therapist referral 2024 025 [facility] (Outpatient Physical Therapy), [address], [place], [address], 02/27/2025 16:31:30 oral & maxillofa cial surgeon referral 2024 025 [email or web address] [facility], [address] [place] [address], [address], 01/03/2025 11:04:32 podiatris t referral 2023 024 IMELDA Griffin MD, [address] [facility], [place], [address], 10/28/2023 12:57:32 diabetic ophthalmo logy referral 2023 024 IMELDA Luong, [address], [place], [address], 11/17/2023 16:55:06 Procedures colonosco py screening (PROC) 2023 024 [facility], [address] [place] [address], [address], 10/14/2023 11:42:05 Surgeries None recorded. Imaging MAMMO, diagnosti c, digital, bilateral [address] (Mammography) , [address], [place], [address], 02/07/2025 14:52:25 US, breast, unilatera l [address] (Mammography) , [address], [place], [address], 02/21/2025 07:56:29 US, duplex, carotid artery [address] (Imaging), [address] [facility] [address], [place], [address], 02/07/2025 14:52:24 US, knee [address] Radiology, [facility] [place], [address], 02/03/2025 08:11:34 US, duplex, venous, lower extremity [address] Radiology Dept, [facility] [place], [address], 02/07/2025 08:00:54 MAMMO, diagnosti c, digital, bilateral [address] (Mammography) , [address], [place], [address], 02/03/2025 08:11:34 US, breast, unilatera l [address] (Mammography) , [address], [place], [address], 01/20/2025 07:56:09 MAMMO, screening , bilateral 2023 024 [facility] (Ultrasound Scheduling), [address] [place], [address], 02/15/2024 16:41:24 CT, abdomen, w/o contrast [address] Radiology - [address], [address] [place], [address], 10/14/2023 12:36:48 Medication Orders Trulicity 0.75 mg/0.5 mL subcutane ous pen injector 2024 025 [facility] [address], [address] [facility], [place], [address], 02/07/2025 13:01:59 OneTouch Verio test strips 2024 025 [facility] [address], [address] [facility], [place], [address], 02/07/2025 13:01:56 Farxiga 10 mg tablet 2024 025 [facility] [address], [address] [facility], [place], [address], 02/07/2025 13:01:56 Ozempic 0.25 mg or 0.5 mg (2 mg/1.5 mL) subcutane ous pen injector [address], [address], [place], [address], 02/07/2025 12:57:01 metformin 500 mg tablet 2024 025 [facility] [address], [address], [place], [address], 01/03/2025 13:28:04 lisinopri l 20 mg-hydroc hlorothia zide 12.5 mg tablet 2024 025 [facility] [address], [address], [place], [address], 01/03/2025 10:49:24 Trulicity 0.75 mg/0.5 mL subcutane ous pen injector [address], [address], [place], [address], 01/03/2025 10:49:35 metformin 500 mg tablet 2023 024 [facility] [address], [address], [place], [address], 11/19/2023 13:26:55 atorvasta tin 40 mg tablet 2023 024 [facility] [address], [address], [place], [address], 11/19/2023 13:26:56 Ozempic 0.25 mg or 0.5 mg (2 mg/1.5 mL) subcutane ous pen injector [address], [address], [place], [address], 02/07/2025 12:57:01 Patient TargetsNo targets recorded. Patient Instructions Encounter Date Encounter Id Patient Instructions Last Modified By Organization Details Last Modified Time 02/15/2024 [id number] A healthy lifestyle: care instructions Not available 02/15/2024 16:52:00 01/03/2025 [id number] A healthy lifestyle: care instructions Not available 01/03/2025 13:28:53 02/07/2025 [id number] A healthy lifestyle: care instructions [email or web address] Not available 02/07/2025 13:05:57 Reason for Referral Desk Operator Referral for Onyc homycosis Referring Physician: Karissa Yates [facility], Encounter Date: 10/14/2023 Diabetic Ophthalmology Refer ral for Uncontrolled type 2 diabetes mellitus Referring Physician: Karissa Yates Laundry Room Attendant, Encounter Date: 10/14/2023 Oral & Maxillofacial Surgeon Referral for Edentulous Referring Physician: Karissa Yates [facility], Encounter Date: 01/03/2025 Physical Therapist Referral for Low back pain Referring Physician: Karissa Yates Laundry Room Attendant, Encounter Date: 02/07/2025 Results Created Date Observation Date Name Description Value Unit Range Abnormal Flag Note LastModifiedBy Organization Detail LastModifiedTime 02/15/2002/14/2025 COLOG UARD cologuard result Cancel led - Order d not applic able Not Available [facility] (Cologuard Orders Only) [address], [place], [address], 02/14/2025 13:40:36 10/14/19 24 10/15/2023 LIPID PANEL cholesterol, total 142 mg/dL 100-19 9 Not Available [facility] ([facility]) [address] [facility], [place], [address], 10/15/2023 09:15:54 10/14/19 24 10/15/2023 LIPID PANEL triglyceride s 98 mg/dL 0-149 Not Available [facility] ([facility]) [address] [facility], [place], [address], 10/15/2023 09:15:54 10/14/19 24 10/15/2023 LIPID PANEL HDL cholesterol 37 mg/dL >39 below low normal Not Available [facility] ([facility]) [address] [place], [address], 10/15/2023 09:15:54 10/14/19 24 10/15/2023 LIPID PANEL VLDL cholesterol greg 18 mg/dL 5-40 Not Available [facility] ([facility]) [address] [place], [address], 10/15/2023 09:15:54 10/14/19 24 10/15/2023 LIPID PANEL LDL chol calc ([facility]) 87 mg/dL 0-99 Not Available [facility] ([facility]) [address] [place], [address], 10/15/2023 09:15:54 10/14/19 24 10/15/2023 COMP. METAB OLIC PANEL (14) glucose 129 mg/dL 70-99 above high normal Not Available [facility] ([facility]) [address] [place], [address], 10/15/2023 09:15:55 10/14/19 24 10/15/2023 COMP. METAB OLIC PANEL (14) BUN 18 mg/dL 6-24 Not Available [facility] ([facility]) [address] [place], [address], 10/15/2023 09:15:55 10/14/19 24 10/15/2023 COMP. METAB OLIC PANEL (14) creatinine 1.08 mg/dL 0.57-1 .00 above high normal Not Available [facility] ([facility]) [address] [place], [address], 10/15/2023 09:15:55 10/14/19 24 10/15/2023 COMP. METAB OLIC PANEL (14) eGFR 63 mL/mi n/1.7 3 >59 Not Available [facility] ([facility]) [address], [place], [address], 10/15/2023 09:15:55 10/14/19 24 10/15/2023 COMP. METAB OLIC PANEL (14) BUN/creatini ne ratio 17 9-23 Not Available [facility] ([facility]) [address] [facility], [place], [address], 10/15/2023 09:15:55 10/14/19 24 10/15/2023 COMP. METAB OLIC PANEL (14) sodium 139 mmol/ L 134-14 4 Not Available [facility] ([facility]) [address] [facility] [place], [address], 10/15/2023 09:15:55 10/14/19 24 10/15/2023 COMP. METAB OLIC PANEL (14) potassium 3.9 mmol/ L 3.5-5. 2 Not Available [facility] ([facility]) [address], [place], [address], 10/15/2023 09:15:55 10/14/19 24 10/15/2023 COMP. METAB OLIC PANEL (14) chloride 101 mmol/ L 96-106 Not Available [facility] ([facility]) [address] [facility] [place], [address], 10/15/2023 09:15:55 10/14/19 24 10/15/2023 COMP. METAB OLIC PANEL (14) carbon dioxide, total 22 mmol/ L 20-29 Not Available [facility] ([facility]) [address] [facility] [place], [address], 10/15/2023 09:15:55 10/14/19 24 10/15/2023 COMP. METAB OLIC PANEL (14) calcium 9.3 mg/dL 8.7-10 .2 Not Available [facility] ([place] [facility]) [address] [facility] [place], [address], 10/15/2023 09:15:55 10/14/19 24 10/15/2023 COMP. METAB OLIC PANEL (14) protein, total 6.6 g/dL 6.0-8. 5 Not Available [facility] ([facility]) [address] [place], [address], 10/15/2023 09:15:55 10/14/19 24 10/15/2023 COMP. METAB OLIC PANEL (14) albumin 4.0 g/dL 3.9-4. 9 Not Available [facility] ([facility]) [address] [place], [address], 10/15/2023 09:15:55 10/14/19 24 10/15/2023 COMP. METAB OLIC PANEL (14) globulin, total 2.6 g/dL 1.5-4. 5 Not Available [facility] ([facility]) [address] [place], [address], 10/15/2023 09:15:55 10/14/19 24 10/15/2023 COMP. METAB OLIC PANEL (14) A/G ratio 1.5 1.2-2. 2 Not Available [facility] ([facility]) [address] [place], [address], 10/15/2023 09:15:55 10/14/19 24 10/15/2023 COMP. METAB OLIC PANEL (14) bilirubin, total 0.5 mg/dL 0.0-1. 2 Not Available [facility] ([facility]) [address] [place], [address], 10/15/2023 09:15:55 10/14/19 24 10/15/2023 COMP. METAB OLIC PANEL (14) alkaline phosphatase 117 IU/L 44-121 Not Available [facility] ([facility]) [address] [place], [address], 10/15/2023 09:15:55 10/14/19 24 10/15/2023 COMP. METAB OLIC PANEL (14) AST (SGOT) 15 IU/L 0-40 Not Available [facility] ([facility]) [address] [facility], [place], [address], 10/15/2023 09:15:55 10/14/19 24 10/15/2023 COMP. METAB OLIC PANEL (14) ALT (SGPT) 18 IU/L 0-32 Not Available [facility] ([facility]) [address] [facility], [place], [address], 10/15/2023 09:15:55 10/14/19 24 10/14/2023 HbA1c (hemo globi n A1c), blood HbA1c 7.6 Not Available In-Office Order Internal Use Only DO Not Attach Compendium DO Not Attach Compendium, Do Not Delete/merge, [id number] 10/14/2023 10:47:29 02/04/20 24 02/04/2024 Compr ehens ricarda metab olic 1999 panel - Serum or Plasm a glucose [mass/volume ] in serum or plasma 137 mg/dL low: 70mg/d Lhigh: 105mg/ dL high Gluco se 137 (H) 70 - 105 mg/dL 02/03 10:08 PM CDT [facility] Not Available Not Available 01/03/2025 03:05:49 02/04/20 24 02/04/2024 Compr ehens ricarda metab olic 1999 panel - Serum or Plasm a sodium [moles/volum e] in serum or plasma 142 mmol/ L low: 136mmo l/Lhig h: 145mmo l/L Sodiu m 142 136 - 145 mmol/ L 02/03 10:08 PM CDT [facility] Not Available Not Available 01/03/2025 03:05:49 02/04/20 24 02/04/2024 Compr ehens ricarda metab olic 1999 panel - Serum or Plasm a potassium [moles/volum e] in serum or plasma 4 mmol/ L low: 3.5mmo l/Lhig h: 5.1mmo l/L Potas sium 4.0 3.5 - 5.1 mmol/ L 02/03 10:08 PM [facility] Not Available Not Available 01/03/2025 03:05:49 02/04/20 24 02/04/2024 Compr ripplrr incens ricarda metab olic 1999 panel - Serum or Plasm a chloride [moles/volum e] in serum or plasma 108 mmol/ L low: 98mmol /Lhigh : 107mmo l/L high Chlor ayesha 108 (H) 98 - 107 mmol/ L 02/03 10:08 PM [facility] Not Available Not Available 01/03/2025 03:05:49 02/04/20 24 02/04/2024 Compr ripplrr incens ricarda metab [employer]akeic 1999 panel - Serum or Plasm a carbon dioxide, total [moles/volum e] in serum or plasma 25 mmol/ L low: 22mmol /Lhigh : 29mmol /L CO2 25 22 - 29 mmol/ L 02/03 10:08 PM [facility] Not Available Not Available 01/03/2025 03:05:49 02/04/20 24 02/04/2024 Compr [employer] ricardaHematris Wound Careic 1999 panel - Serum or Plasm a calcium [mass/volume ] in serum or plasma 9.7 mg/dL low: 8.4mg/ dLhigh : 10.4mg /dL Calci um 9.7 8.4 - 10.4 mg/dL 02/03 10:08 PM Cen[facility] Not Available Not Available 01/03/2025 03:05:49 02/04/20 24 02/04/2024 Compr [employer]arda[employer] olic 1999 panel - Serum or Plasm a anion gap in blood 9 mmol/ L low: 6mmol/ Lhigh: 16mmol /L Anion Gap 9 6 - 16 mmol/ L 02/03 10:08 PM [facility] Not Available Not Available 01/03/2025 03:05:49 02/04/20 24 02/04/2024 Compr [employer] ricardaHematris Wound Careic 1999 panel - Serum or Plasm a urea nitrogen [mass/volume ] in serum or plasma 15 mg/dL low: 7mg/dL high: 26mg/d L BUN 15 7 - 26 mg/dL 02/03 10:08 PM [facility] Not Available Not Available 01/03/2025 03:05:49 02/04/20 24 02/04/2024 Compr [employer] ricarda tribr 1999 panel - Serum or Plasm a creatinine [mass/volume ] in serum or plasma 1.13 mg/dL low: 0.57mg /dLhig h: 1.11mg /dL high Creat inine 1.13 (H) 0.57 - 1.11 mg/dL 02/03 10:08 PM [facility] Not Available Not Available 01/03/2025 03:05:49 02/04/20 24 02/04/2024 Compr [place] panel - Serum or Plasm a alkaline phosphatase [enzymatic activity/vol ume] in serum or plasma 111 U/L low: 40U/Lh igh: 150U/L Alkal ine Phosp hatas e 111 40 - 150 U/L 02/03 10:08 PM [facility] Not Available Not Available 01/03/2025 03:05:49 02/04/20 24 02/04/2024 Compr [employer] ricardaTripware 1999 panel - Serum or Plasm a alanine aminotransfe rase [enzymatic activity/vol ume] in serum or plasma 22 U/L low: 0U/Lhi gh: 55U/L ALT 22 0 - 55 U/L 02/03 10:08 PM [facility] Not Available Not Available 01/03/2025 03:05:49 02/04/20 24 02/04/2024 Compr [employer] ricardaTripware 1999 panel - Serum or Plasm a aspartate aminotransfe rase [enzymatic activity/vol ume] in serum or plasma 22 U/L low: 5U/Lhi gh: 34U/L AST 22 5 - 34 U/L 02/03 10:08 PM [facility] Not Available Not Available 01/03/2025 03:05:49 02/04/20 24 02/04/2024 Compr [employer] ricarda tribr 2000 panel - Serum or Plasm a protein [mass/volume ] in serum or plasma 7.4 text: 6.4 - 8.3 gm/dL Prote in Total 7.4 6.4 - 8.3 gm/dL 02/03 10:08 PM [facility] Not Available Not Available 01/03/2025 03:05:49 02/04/20 24 02/04/2024 Compr [employer] ricardaTripware 2000 panel - Serum or Plasm a albumin [mass/volume ] in serum or plasma 3.8 text: 3.4 - 5.0 gm/dL Album in 3.8 3.4 - 5.0 gm/dL 02/03 10:08 PM [facility] Not Available Not Available 01/03/2025 03:05:49 02/04/2002/04/2024 Compr [place] panel - Serum or Plasm a bilirubin.to daniel [mass/volume ] in serum or plasma 0.5 mg/dL low: 0.2mg/ dLhigh : 1.2mg/ dL Bilir ubin Total 0.5 0.2 - 1.2 mg/dL 02/03 10:08 PM [facility] Not Available Not Available 01/03/2025 03:05:49 02/04/20 24 02/04/2024 Compr [employer] 2000 panel - Serum or Plasm a glomerular filtration rate/1.73 sq M.predicted [volume rate/area] in serum, plasma or blood by creatinine-b ased formula (CKD-epi) 59 text: >=90 mL/min /1.73 m2 low eGFR by CKD-E PI 59 (L) >=90 mL/mi n/1.7 3 m2 02/03 10:08 PM [facility] Not Available Not Available 01/03/2025 03:05:49 02/04/20 24 02/04/2024 Compr [employer] ricarda tribr 2000 panel - Serum or Plasm a interpretati on and review of laboratory results Abnorm al Not Available Not Available 03:05:49 02/04/20 24 02/04/2024 CBC W Auto Diffe renti al panel - Blood leukocytes [#/volume] in blood by automated count 9.6 text: 4.0 - 10.7 x10e9/ L WBC 9.6 4.0 - 10.7 x10E9 /L 02/03 9:54 PM CDT [facility] Not Available Not Available 01/03/2025 03:05:49 02/04/20 24 02/04/2024 CBC W Auto Diffe renti al panel - Blood erythrocytes [#/volume] in blood by automated count 5.03 text: 3.90 - 5.20 x10e12 /L RBC Count 5.03 3.90 - 5.20 x10E1 2/L 02/03 9:54 PM CDT [facility] Not Available Not Available 01/03/2025 03:05:49 02/04/20 24 02/04/2024 CBC W Auto Diffe renti al panel - Blood hemoglobin [mass/volume ] in blood 14.2 g/dL low: 11.9g/ dLhigh : 15.8g/ dL Hemog lobin 14.2 11.9 - 15.8 g/dL 02/03 9:54 PM T [facility] Not Available Not Available 01/03/2025 03:05:49 02/04/20 24 02/04/2024 CBC W Auto Diffe renti al panel - Blood hematocrit [volume fraction] of blood by automated count 44.9 % low: 34.8%h igh: 46.1% Hemat ocrit 44.9 34.8 - 46.1 % 02/03 9:54 PM T [facility] Not Available Not Available 01/03/2025 03:05:49 02/04/20 24 02/04/2024 CBC W Auto Diffe renti al panel - Blood MCV [entitic volume] by automated count 89.3 fL low: 80fLhi gh: 98fL MCV 89.3 80.0 - 98.0 fL 02/03 9:54 PM T [facility] Not Available Not Available 01/03/2025 03:05:49 02/04/20 24 02/04/2024 CBC W Auto Diffe renti al panel - Blood MCH [entitic mass] by automated count 28.2 pg low: 26.7pg high: 33.6pg MCH 28.2 26.7 - 33.6 pg 02/03 9:54 PM T [facility] Not Available Not Available 01/03/2025 03:05:49 02/04/20 24 02/04/2024 CBC W Auto Diffe renti al panel - Blood MCHC [mass/volume ] by automated count 31.6 g/dL low: 31.7g/ dLhigh : 36.3g/ dL low MCHC 31.6 (L) 31.7 - 36.3 g/dL 02/03 9:54 PM CDT [facility] Not Available Not Available 01/03/2025 03:05:49 02/04/20 24 02/04/2024 CBC W Auto Diffe renti al panel - Blood erythrocyte distribution width [ratio] by automated count 14.5 % low: 11.3%h igh: 14.8% RDW-C V 14.5 11.3 - 14.8 % 02/03 9:54 PM T [facility] Not Available Not Available 01/03/2025 03:05:49 02/04/20 24 02/04/2024 CBC W Auto Diffe elderti al panel - Blood platelets [#/volume] in blood by automated count 283 text: 150 - 420 x10e9/ L Plate let Count 283 150 - 420 x10E9 /L 02/03 9:54 PM T [facility] Not Available Not Available 01/03/2025 03:05:49 02/04/20 24 02/04/2024 CBC W Auto Diffe renti al panel - Blood platelet mean volume [entitic volume] in blood by automated count 10.6 fL low: 7.8fLh igh: 11.4fL MPV 10.6 7.8 - 11.4 fL 02/03 9:54 PM T [facility] Not Available Not Available 01/03/2025 03:05:49 02/04/20 24 02/04/2024 CBC W Auto Diffe renti al panel - Blood neutrophils/ 100 leukocytes in blood by automated count 66.4 % low: 41%hig h: 74% Neutr ophil % 66.4 41.0 - 74.0 % 02/03 9:54 PM CDT [facility] Not Available Not Available 01/03/2025 03:05:49 02/04/20 24 02/04/2024 CBC W Auto Diffe renti al panel - Blood lymphocytes/ 100 leukocytes in blood by automated count 26.4 % low: 17%hig h: 47% Lymph ocyte % 26.4 17.0 - 47.0 % 02/03 9:54 PM CDT [facility] Not Available Not Available 01/03/2025 03:05:49 02/04/20 24 02/04/2024 CBC W Auto Diffe renti al panel - Blood monocytes/10 0 leukocytes in blood by automated count 4.8 % low: 3%high : 11% Monoc yte % 4.8 3.0 - 11.0 % 02/03 9:54 PM CDT [facility] Not Available Not Available 01/03/2025 03:05:49 02/04/20 24 02/04/2024 CBC W Auto Diffe renti al panel - Blood eosinophils/ 100 leukocytes in blood by automated count 1.6 % low: 0%high : 7% Eosin ophil % 1.6 0.0 - 7.0 % 02/03 9:54 PM CDT [facility] Not Available Not Available 01/03/2025 03:05:49 02/04/20 24 02/04/2024 CBC W Auto Diffe renti al panel - Blood basophils/10 0 leukocytes in blood by automated count 0.5 % low: 0%high : 1.6% Basop hil % 0.5 0.0 - 1.6 % 02/03 9:54 PM CDT [facility] Not Available Not Available 01/03/2025 03:05:49 02/04/20 24 02/04/2024 CBC W Auto Diffe renti al panel - Blood immature granulocytes /100 leukocytes in blood by automated count 0.3 % low: 0%high : 1% Immat ure Granu locyt es % 0.3 0.0 - 1.0 % 02/03 9:54 PM CDT [facility] Not Available Not Available 01/03/2025 03:05:49 02/04/20 24 02/04/2024 CBC W Auto Diffe renti al panel - Blood neutrophils [#/volume] in blood by automated count 6.39 text: 1.60 - 7.50 x10e9/ L Neutr ophil Absol [place] 6.39 1.60 - 7.50 x10E9 /L 02/03 9:54 PM CDT [facility] Not Available Not Available 01/03/2025 03:05:49 02/04/20 24 02/04/2024 CBC W Auto Diffe renti al panel - Blood lymphocytes [#/volume] in blood by automated count 2.54 text: 1.00 - 4.40 x10e9/ L Lymph ocyte Absol [place] 2.54 1.00 - 4.40 x10E9 /L 02/03 9:54 PM CDT [facility] Not Available Not Available 01/03/2025 03:05:49 02/04/20 24 02/04/2024 CBC W Auto Diffe renti al panel - Blood monocytes [#/volume] in blood by automated count 0.46 text: 0.15 - 1.00 x10e9/ L Monoc yte Absol [place] 0.46 0.15 - 1.00 x10E9 /L 02/03 9:54 PM CDT [facility] Not Available Not Available 01/03/2025 03:05:49 02/04/20 24 02/04/2024 CBC W Auto Diffe renti al panel - Blood eosinophils [#/volume] in blood 0.15 text: 0.00 - 0.60 x10e9/ L Eosin ophil Absol [place] 0.15 0.00 - 0.60 x10E9 /L 02/03 9:54 PM CDT [facility] Not Available Not Available 01/03/2025 03:05:49 02/04/20 24 02/04/2024 CBC W Auto Diffe renti al panel - Blood basophils [#/volume] in blood by automated count 0.05 text: 0.00 - 0.13 x10e9/ L Basop hil Absol [place] 0.05 0.00 - 0.13 x10E9 /L 02/03 9:54 PM CDT [facility] Not Available Not Available 01/03/2025 03:05:49 02/04/20 24 02/04/2024 CBC W Auto Diffe renti al panel - Blood interpretati on and review of laboratory results Abnorm al Not Available Not Available 03:05:49 01/04/20 25 01/04/2025 ALBUM IN/CR EATIN INE RATIO ,URIN E creatinine, urine 109.2 mg/dL notest ab. Not Available [facility] ([facility]) [address] [place], [address], 01/04/2025 12:13:27 01/04/2001/04/2025 ALBUM IN/CR EATIN INE RATIO ,URIN E albumin, urine 15.5 ug/mL notest ab. Not Available [facility] ([facility]) [address] [place], [address], 01/04/2025 12:13:27 01/04/20 25 01/04/2025 ALBUM IN/CR EATIN INE RATIO ,URIN E alb/creat ratio 14 mg/g_ creat 0-29 Giana l: 0 - 29 Moder ately incre ased: 30 - 300 Sever blanca incre ased: >300 Not Available [facility] ([facility]) [address] [place], [address], 01/04/2025 12:13:27 01/04/2001/04/2025 LIPID PANEL cholesterol, total 165 mg/dL 100-19 9 Not Available [facility] ([facility]) [address] [place], [address], 01/04/2025 12:13:28 01/04/2001/04/2025 LIPID PANEL triglyceride s 132 mg/dL 0-149 Not Available [facility] ([facility]) [address] [place], [address], 01/04/2025 12:13:28 01/04/20 25 01/04/2025 LIPID PANEL HDL cholesterol 46 mg/dL >39 Not Available [facility] ([facility]) [address] [place], [address], 01/04/2025 12:13:28 01/04/20 25 01/04/2025 LIPID PANEL VLDL cholesterol greg 23 mg/dL 5-40 Not Available [facility] ([facility]) [address] [place], [address], 01/04/2025 12:13:28 01/04/20 25 01/04/2025 LIPID PANEL LDL chol calc ([facility]) 96 mg/dL 0-99 Not Available [facility] ([facility]) [address] [place], [address], 01/04/2025 12:13:28 01/04/20 25 01/04/2025 COMP. METAB OLIC PANEL (14) glucose 131 mg/dL 70-99 above high normal Not Available [facility] ([facility]) [address] [place], [address], 01/04/2025 12:13:29 01/04/20 25 01/04/2025 COMP. METAB OLIC PANEL (14) BUN 15 mg/dL 6-24 Not Available [facility] ([facility]) [address] [place], [address], 01/04/2025 12:13:29 01/04/20 25 01/04/2025 COMP. METAB OLIC PANEL (14) creatinine 0.95 mg/dL 0.57-1 .00 Not Available [facility] ([facility]) [address] [place], [address], 01/04/2025 12:13:29 01/04/20 25 01/04/2025 COMP. METAB OLIC PANEL (14) eGFR 73 mL/mi n/1.7 3 >59 Not Available [facility] ([facility]) [address] [place], [address], 01/04/2025 12:13:29 01/04/20 25 01/04/2025 COMP. METAB OLIC PANEL (14) BUN/creatini ne ratio 16 9-23 Not Available [facility] ([facility]) [address] [place], [address], 01/04/2025 12:13:29 01/04/20 25 01/04/2025 COMP. METAB OLIC PANEL (14) sodium 141 mmol/ L 134-14 4 Not Available [facility] ([facility]) [address] [place], [address], 01/04/2025 12:13:29 01/04/20 25 01/04/2025 COMP. METAB OLIC PANEL (14) potassium 4.3 mmol/ L 3.5-5. 2 Not Available [facility] ([facility]) [address] [place], [address], 01/04/2025 12:13:29 01/04/20 25 01/04/2025 COMP. METAB OLIC PANEL (14) chloride 102 mmol/ L 96-106 Not Available [facility] ([facility]) [address] [place], [address], 01/04/2025 12:13:29 01/04/20 25 01/04/2025 COMP. METAB OLIC PANEL (14) carbon dioxide, total 26 mmol/ L 20-29 Not Available [facility] ([facility]) [address] [place], [address], 01/04/2025 12:13:29 01/04/20 25 01/04/2025 COMP. METAB OLIC PANEL (14) calcium 9.5 mg/dL 8.7-10 .2 Not Available [facility] ([facility]) [address] [place], [address], 01/04/2025 12:13:29 01/04/20 25 01/04/2025 COMP. METAB OLIC PANEL (14) protein, total 6.8 g/dL 6.0-8. 5 Not Available [facility] ([facility]) [address] [facility] [place], [address], 01/04/2025 12:13:29 01/04/20 25 01/04/2025 COMP. METAB OLIC PANEL (14) albumin 4.1 g/dL 3.8-4. 9 Not Available [facility] ([facility]) [address] [facility] [place], [address], 01/04/2025 12:13:29 01/04/20 25 01/04/2025 COMP. METAB OLIC PANEL (14) globulin, total 2.7 g/dL 1.5-4. 5 Not Available [facility] ([facility]) [address] [facility] [place], [address], 01/04/2025 12:13:29 01/04/20 25 01/04/2025 COMP. METAB OLIC PANEL (14) bilirubin, total 0.3 mg/dL 0.0-1. 2 Not Available [facility] ([facility]) [address] [place], [address], 01/04/2025 12:13:29 01/04/20 25 01/04/2025 COMP. METAB OLIC PANEL (14) alkaline phosphatase 134 IU/L 44-121 above high normal Not Available [facility] ([facility]) [address] [place], [address], 01/04/2025 12:13:29 01/04/20 25 01/04/2025 COMP. METAB OLIC PANEL (14) AST (SGOT) 18 IU/L 0-40 Not Available [facility] ([facility]) [address] [place], [address], 01/04/2025 12:13:29 01/04/20 25 01/04/2025 COMP. METAB OLIC PANEL (14) ALT (SGPT) 15 IU/L 0-32 Not Available [facility] ([facility]) [address] [place], [address], 01/04/2025 12:13:29 01/04/2001/04/2025 HEMOG LOBIN A1C hemoglobin A1C 7.9 % 4.8-5. 6 above high normal Predi abete s: 5.7 - 6.4 Diabe corby: >6.4 Glyce scotty contr ol for adult s with diabe corby: <7.0 Not Available [facility] ([facility]) [address] [place], [address], 01/04/2025 12:13:31 01/04/2001/04/2025 CBC WITH DIFFE RENTI AL/PL ATELE T WBC 10.2 x10e3 /uL 3.4-10 .8 Not Available [facility] ([facility]) [address] [place], [address], 01/04/2025 12:13:32 01/04/2001/04/2025 CBC WITH DIFFE RENTI AL/PL ATELE T RBC 5.19 x10e6 /uL 3.77-5 .28 Not Available [facility] ([facility]) [address] [facility], [place], [address], 01/04/2025 12:13:32 01/04/2001/04/2025 CBC WITH DIFFE RENTI AL/PL ATELE T hemoglobin 14.3 g/dL 11.1-1 5.9 Not Available [facility] ([facility]) [address] [place], [address], 01/04/2025 12:13:32 01/04/2001/04/2025 CBC WITH DIFFE RENTI AL/PL ATELE T hematocrit 45.0 % 34.0-4 6.6 Not Available [facility] ([facility]) [address] [place], [address], 01/04/2025 12:13:32 01/04/2001/04/2025 CBC WITH DIFFE RENTI AL/PL ATELE T MCV 87 fL 79-97 Not Available [facility] ([facility]) [address] [facility], [place], [address], 01/04/2025 12:13:32 01/04/2001/04/2025 CBC WITH DIFFE RENTI AL/PL ATELE T MCH 27.6 pg 26.6-3 3.0 Not Available [facility] ([facility]) [address] [facility], [place], [address], 01/04/2025 12:13:32 01/04/2001/04/2025 CBC WITH DIFFE RENTI AL/PL ATELE T MCHC 31.8 g/dL 31.5-3 5.7 Not Available [facility] ([facility]) [address] [place], [address], 01/04/2025 12:13:32 01/04/2001/04/2025 CBC WITH DIFFE RENTI AL/PL ATELE T RDW 13.5 % 11.7-1 5.4 Not Available [facility] ([facility]) [address] [place], [address], 01/04/2025 12:13:32 01/04/2001/04/2025 CBC WITH DIFFE RENTI AL/PL ATELE T platelets 332 x10e3 /uL 150-45 0 Not Available [facility] ([facility]) [address] [place], [address], 01/04/2025 12:13:32 01/04/2001/04/2025 CBC WITH DIFFE RENTI AL/PL ATELE T neutrophils 52 % notest ab. Not Available [facility] ([facility]) [address] [place], [address], 01/04/2025 12:13:32 01/04/20 25 01/04/2025 CBC WITH DIFFE RENTI AL/PL ATELE T lymphs 39 % notest ab. Not Available [facility] ([facility]) [address] [facility], [place], [address], 01/04/2025 12:13:32 01/04/2001/04/2025 CBC WITH DIFFE RENTI AL/PL ATELE T monocytes 5 % notest ab. Not Available [facility] ([facility]) [address] [facility], [place], [address], 01/04/2025 12:13:32 01/04/2001/04/2025 CBC WITH DIFFE RENTI AL/PL ATELE T eos 3 % notest ab. Not Available [facility] ([facility]) [address] [facility], [place], [address], 01/04/2025 12:13:32 01/04/2001/04/2025 CBC WITH DIFFE RENTI AL/PL ATELE T basos 1 % notest ab. Not Available [facility] ([facility]) [address] [facility], [place], [address], 01/04/2025 12:13:32 01/04/2001/04/2025 CBC WITH DIFFE RENTI AL/PL ATELE T neutrophils (absolute) 5.2 x10e3 /uL 1.4-7. 0 Not Available [facility] ([facility]) [address] [facility], [place], [address], 01/04/2025 12:13:32 01/04/2001/04/2025 CBC WITH DIFFE RENTI AL/PL ATELE T lymphs (absolute) 4.0 x10e3 /uL 0.7-3. 1 above high normal Not Available [facility] ([facility]) [address] [facility], [place], [address], 01/04/2025 12:13:32 01/04/2001/04/2025 CBC WITH DIFFE RENTI AL/PL ATELE T monocytes(ab solute) 0.5 x10e3 /uL 0.1-0. 9 Not Available [facility] ([facility]) [address] [place], [address], 01/04/2025 12:13:32 01/04/20 25 01/04/2025 CBC WITH DIFFE RENTI AL/PL ATELE T eos (absolute) 0.3 x10e3 /uL 0.0-0. 4 Not Available [facility] ([facility]) [address] [place], [address], 01/04/2025 12:13:32 01/04/20 25 01/04/2025 CBC WITH DIFFE RENTI AL/PL ATELE T baso (absolute) 0.1 x10e3 /uL 0.0-0. 2 Not Available [facility] ([facility]) [address] [place], [address], 01/04/2025 12:13:32 01/04/20 25 01/04/2025 CBC WITH DIFFE RENTI AL/PL ATELE T immature granulocytes 0 % notest ab. Not Available [facility] ([facility]) [address] [place], [address], 01/04/2025 12:13:32 01/04/20 25 01/04/2025 CBC WITH DIFFE RENTI AL/PL ATELE T immature grans (abs) 0.0 x10e3 /uL 0.0-0. 1 Not Available [facility] ([facility]) [address] [place], [address], 01/04/2025 12:13:32 02/15/20 24 11/16/2023 MAMMO , scree haroon, bilat eral No observ ation record ed. [email or web address] , [place], [address], 02/15/2024 16:57:10 Result Notes None recorded. Problems Name Problem SNOMED Code Status Onset Date Resolution Date Notes Provider Name and Address Organization Details Recorded Time Vitamin D deficiency 62437373 Active 2017 LORRI Mccracken NP Attn: Rafiq chung,[address] [facility], [place], [address], [place] - [facility] 8 20:32:05 Exposure to Hepatitis C virus Active 2017 LORRI Mccracken NP Attn: Abelardojaswant chung,[address] [place], [address], [place] [facility] 8 20:32:07 Type 2 diabetes mellitus 82475486 Active 2019 Marcy Carnes MD Attn: Rafiq chung,[address] [place], [address], [place] [facility] 0 20:04:39 Essential hypertensio n 82572774 Active 2020 Dori Jalloh MD Attn: Abelardojaswant chung,[address] [place], [address], [place] [facility] 1 11:58:57 Morbid obesity 083999025 Active 2020 Dori Jalloh MD Attn: Abelardojaswant chung,[address] [place], [address], [place] [facility] 1 12:11:16 Uncontrolle d type 2 diabetes mellitus 486753991 Active 2020 Dori Jalloh MD Attn: Rafiq sheldon,[address] [place], [address], [place] [facility] 1 15:15:40 Mass of left adrenal gland 7232467410354 9101 Active 2020 Dori Jalloh MD Attn: Abelardojaswant chung,[address] [place], [address], [place] [facility] 1 15:26:30 Foot callus 968785450 Active 2023 RENU CURTIS Attn: Rafiq sheldon,[address] [place], [address], [place] [facility] 4 08:26:56 Onychomycos is 444054854 Active 2023 RENU CURTIS Attn: Rafiq chung,[address] [facility], [place], [address], [place] - [facility] 4 08:26:56 Adrenal adenoma 942945101 Active 2023 RENU CURTIS Attn: Rafiq chung,[address] [facility], [place], [address], [place] - [facility] 4 13:27:23 Pneumococca l vaccination declined 515367412 Active 2024 RENU CURTIS Attn: Rafiq chung,[address] [facility], [place], [address], [place] [facility] 5 13:29:02 Acute urinary tract infection 584823595 Active 2016 LORRI Mccracken NP Attn: Rafiq chung,[address] [facility], [place], [address], [place] [facility] 7 15:41:20 Problem Notes None recorded. Procedures Surgical History Date Name Laterality Status Provider Name and Address Organization Details Recorded Time 07/06/20 19 Cryosurgery Warts/Skin Tags completed Jane Thompson [place] - [facility] 07/06/2019 09:27:30 02/18/20 19 Date of Last Mammogram completed Marlene Rizo [place] - [facility] 05/04/2019 15:48:36 Cholecystectomy completed Meli Durant CMA [place] - [facility] 06/25/2017 12:13:57 Imaging Results Imaging Date Name Status LastModified by Organiz ation Details LastModified Time 11/16/2023 MAMMO, screening, bilateral completed [address] [place], [address], 02/15/2024 16:57:10 Procedure Notes None recorded. Medical Equipment None Reported. Allergies Allergen ID Allergen Name Allergen Category Reaction Reaction Severity Criticality Documentation Date Start Date Code Code System Note Provider Name and Address Organization Details Recorded Time 433449 metoprolo l Not available itching Not available Not available 09/30/2018 6918 RxNorm LORRI Mccracken NP Attn: Rafiq sheldon,[address] [facility], [place], [address], [facility] - [facility] 8 15:38:46 Medications Name Sig Start Date Stop Date Status Note LastModified by Organization Details LastModified Time Prescriptio n - Renewal active Not Available Not Available Not Available Prescriptio n - Prior Authorizati on Request active Not Available Not Available N ot Available losartan 50 mg tablet TAKE 1 TABLET BY MOUTH EVERY DAY 06/10 completed Not Available Not Available Not Available cyclobenzap rine 10 mg tablet 08/30 completed Not Available Not Available Not Available amoxicillin 500 mg capsule TAKE ONE CAPSULE BY MOUTH EVERY 8 HOURS 01/03 completed Not Available Not Available Not Available atorvastati n 40 mg tablet Take 1 tablet every day by oral route at bedtime. active Not Available Not Available No t Available terbinafine HCl 1 % topical cream APPLY TO THE AFFECTED AND SURROUNDI NG AREAS OF SKIN BY TOPICAL ROUTE ONCE DAILY 08/30 completed Not Available Not Available Not Available metformin 500 mg tablet TAKE 1 TABLET BY MOUTH TWICE DAILY active Not Available Not Available No t Available neomycin-po lymyxin-hyd rocort 3.5 mg/mL-10,00 0 unit/mL-1 % ear solution 08/30 completed Not Available Not Available Not Available carvedilol 25 mg tablet Take 1 tablet twice a day by oral route. 05/04 completed Not Available Not Available Not Available carvedilol 6.25 mg tablet TAKE ONE TABLET BY MOUTH TWICE DAILY 07/07 completed Not Available Not Available Not Available prednisone 10 mg tablet TAKE 6 TABLETS BY MOUTH ONCE DAILY FOR 4 DAYS THEN 5 ONCE DAILY FOR 4 DAYS THEN 4 ONCE DAILY FOR 4 DAYS THEN 3 ONCE DAILY FOR 4 DAYS THEN 2 ONCE DAILY FOR 4 DAYS THEN 1 ONCE DAILY FOR 4 DAYS 01/03 completed Not Available Not Available Not Available doxycycline hyclate 100 mg capsule 10/14 completed Not Available Not Available Not Available carvedilol 12.5 mg tablet Take 1 tablet twice a day by oral route. 05/04 completed Not Available Not Available Not Available clindamycin HCl 300 mg capsule TAKE 1 CAPSULE BY MOUTH 4 TIMES DAILY FOR 10 DAYS 10/14 completed Not Available Not Available Not Available lisinopril 20 mg-hydrochl orothiazide 12.5 mg tablet TAKE 2 TABLETS BY MOUTH ONCE DAILY active Not Available Not Available No t Available azithromyci n 250 mg tablet TAKE 2 TABLETS BY MOUTH ON DAY 1 AND THEN TAKE 1 TABLET BY MOUTH ONCE A DAY ON DAY 2 THROUGH DAY 5 08/30 completed Not Available Not Available Not Available ibuprofen 800 mg tablet 08/30 completed Not Available Not Available Not Available meloxicam 15 mg tablet TAKE 1 TABLET BY MOUTH ONCE DAILY WITH FOOD active Not Available Not Available No t Available lisinopril 20 mg tablet TAKE ONE TABLET BY MOUTH TWICE DAILY 07/07 completed Not Available Not Available Not Available prednisone 20 mg tablet 05/04 completed Not Available Not Available Not Available potassium chloride ER 10 mEq tablet,exte nded release TAKE 1 TABLET BY MOUTH ONCE DAILY active Not Available Not Available No t Available ciprofloxac in 500 mg tablet Take 1 tablet every 12 hours by oral route for 10 days. 02/25 completed Not Available Not Available Not Available sulfamethox azole 800 mg-trimetho prim 160 mg tablet Take 1 tablet twice a day by oral route for 10 days. 08/30 completed Not Available Not Available Not Available doxycycline monohydrate 100 mg tablet TAKE 1 TABLET BY MOUTH TWICE DAILY FOR 7 DAYS 01/03 completed Not Available Not Available Not Available triamcinolo ne acetonide 0.1 % topical cream APPLY CREAM EXTERNALL Y TO AFFECTED AREA TWICE DAILY active Not Available Not Available No t Available acyclovir 800 mg tablet Take 1 tablet 5 times a day by oral route for 7 days. 06/10 completed Not Available Not Available Not Available ketorolac 10 mg tablet TAKE 1 TABLET BY MOUTH EVERY 6 HOURS NEEDED FOR PAIN active Not Available Not Available No t Available Macrobid 100 mg capsule Take 1 capsule every 12 hours by oral route for 10 days. 05/04 completed Not Available Not Available Not Available terbinafine HCl 250 mg tablet Take 1 tablet every day by oral route. 11/21 completed Not Available Not Available Not Available amoxicillin 875 mg tablet TAKE 1 TABLET BY MOUTH TWICE DAILY FOR 7 DAYS 11/19 completed Not Available Not Available Not Available benzonatate 100 mg capsule 02/25 completed Not Available Not Available Not Available cephalexin 500 mg capsule Take 1 capsule twice a day by oral route for 10 days. 10/14 completed Not Available Not Available Not Available prednisone 50 mg tablet 09/07 completed Not Available Not Available Not Available lidocaine 5 % topical patch use 1 patch extremall y to affected area every 24 hours 2021 active Not Available Not Available Not Avai lable triamterene 37.5 mg-hydrochl orothiazide 25 mg tablet Take 1 tablet every day by oral route. 08/30 completed Not Available Not Available Not Available hydrochloro thiazide 25 mg tablet TAKE 1 TABLET BY MOUTH ONCE DAILY 07/22 completed Not Available Not Available Not Available furosemide 20 mg tablet Take 1 tablet(s) every day by oral route in the morning. 08/30 completed Not Available Not Available Not Available triamterene 75 mg-hydrochl orothiazide 50 mg tablet Take 1 tablet every day by oral route. 08/30 completed Not Available Not Available Not Available ergocalcife rol (vitamin D2) 1,250 mcg (50,000 unit) capsule TAKE 1 CAPSULE BY MOUTH ONCE WEEKLY active Not Available Not Available No t Available methylpredn isolone 4 mg tablets in a dose pack TAKE BY MOUTH DIRECTED ON INSIDE OF PACKAGE 10/14 completed Not Available Not Available Not Available albuterol sulfate HFA 90 mcg/actuati on aerosol inhaler INHALE 2 PUFFS BY MOUTH FOUR TIMES DAILY NEEDED 08/30 completed Not Available Not Available Not Available ondansetron 4 mg disintegrat ing tablet Place 2 tablets twice a day by transling ual route as needed. active Not Available Not Available No t Available losartan 100 mg tablet TAKE 1 TABLET BY MOUTH ONCE DAILY 08/30 completed Not Available Not Available Not Available fluticasone propionate 50 mcg/actuati on nasal spray,suspe nsion 08/30 completed Not Available Not Available Not Available metformin ER 500 mg tablet,exte nded release 24 hr take one tablet twice daily 11/19 completed Not Available Not Available Not Available naproxen 500 mg tablet 08/30 completed Not Available Not Available Not Available amoxicillin 875 mg-potassiu m clavulanate 125 mg tablet TAKE 1 TABLET BY MOUTH EVERY 12 HOURS FOR 5 DAYS 02/14 completed Not Available Not Available Not Available Alcohol Prep Pads Use once daily and prn active Not Available Not Available No t Available metoprolol tartrate 25 mg tablet TAKE 1 TABLET BY MOUTH TWICE DAILY 08/30 completed Not Available Not Available Not Available lisinopril 05/04 completed Not Available Not Available Not Available Solu-Medrol (PF) 125 mg/2 mL solution for injection Give 125 mg IM x 1. 05/04 completed Not Available Not Available Not Available Farxiga 10 mg tablet TAKE 1 TABLET BY MOUTH ONCE DAILY active Not Available Not Available No t Available Trulicity 1.5 mg/0.5 mL subcutaneou s pen injector INJECT 1.5MG SUBCUTANE OUSLY EVERY 7 DAYS 01/03 completed Not Available Not Available Not Available Trulicity 0.75 mg/0.5 mL subcutaneou s pen injector Inject 0.75 mg every week by subcutane ous route. 2024 active Not Available Not Available Not Avai labrebecca True Metrix Air Glucose Meter kit active Not Available Not Available No t Available Ozempic 0.25 mg or 0.5 mg (2 mg/1.5 mL) subcutaneou s pen injector Inject 0.25 mg every week by subcutane ous route. 02/07 completed Not Available Not Available Not Available OneTouch Delica Plus Lancet 33 gauge active Not Available Not Available Not Available OneTouch Delica Plus Lancet 30 gauge USE DIRECTED active Not Available Not Available No t Available Trulicity 3 mg/0.5 mL subcutaneou s pen injector INJECT 3 MG SUBCUTANE OUSLY WEEKLY 09/29 completed Not Available Not Available Not Available Ozempic 0.25 mg or 0.5 mg (2 mg/3 mL) subcutaneou s pen injector INJECT 1/4 (ONE-FOUR TH) MG ONCE A WEEK SUBCUTANE OUSLY active Not Available Not Available No t Available Contour Plus Test Strip USE 1 STRIP TO CHECK GLUCOSE TWICE DAILY active Not Available Not Available No t Available Contour Plus Blue Meter USE DIRECTED active Not Available Not Available No t Available Vitals Date Recorded Body height Body mass index (BMI) Body weight Heart rate Oxygen saturation Oxygen saturation in Arterial blood by Pulse oximetry Provider Name and Address Organization Details Last Updated DateTime 4 167.64 cm 42.6 kg/m2 472946. 39 g 99 /min 99 % 99 % Nae Braun MA [facility] 4 10:41:10 Date Recorded Systolic blood pressure Diastolic blood pressure Provider Name and Address Organization Details Last Updated DateTime 10/14/2023 114 mm[Hg] 82 mm[Hg] RENU CURTIS Attn: Accounting, [place], [address], [facility] 10/15/2023 08:25:29 Date Recorded Body height Heart rate Oxygen saturation Oxygen saturation in Arterial blood by Pulse oximetry Body mass index (BMI) Body weight Systolic blood pressure Diastolic blood pressure Provider Name and Address Organization Details Last Updated DateTime 4 167.64 cm 96 /min 99 % 99 % 42.9 kg/m2 783953. 57 g 128 mm[Hg] 84 mm[Hg] RENU CURTIS Attn: Accountin g,[address] [place], [address], [facility] 4 12:30:05 Date Recorded Body height Body mass index (BMI) Body weight Oxygen saturation Oxygen saturation in Arterial blood by Pulse oximetry Respiratory rate Heart rate Systolic blood pressure Diastolic blood pressure Provider Name and Address Organization Details Last Updated DateTime 4 167.64 cm 40.9 kg/m2 630559. 97 g 99 % 99 % 18 /min 92 /min 126 mm[Hg] 84 mm[Hg] Loni Zheng MA [facility] 4 11:21:06 Date Recorded Body height Body mass index (BMI) Body weight Heart rate Oxygen saturation Oxygen saturation in Arterial blood by Pulse oximetry Provider Name and Address Organization Details Last Updated DateTime 5 167.64 cm 44.2 kg/m2 803919. 01 g 97 /min 98 % 98 % Nae Braun MA [facility] 5 10:38:55 Date Recorded Systolic blood pressure Diastolic blood pressure Provider Name and Address Organization Details Last Updated DateTime 01/03/2025 160 mm[Hg] 100 mm[Hg] RENU CURTIS Attn: Accounting,[address] [facility], [place], [address], [facility] 01/03/2025 13:24:27 Date Recorded Body height Body mass index (BMI) Body weight Heart rate Oxygen saturation Oxygen saturation in Arterial blood by Pulse oximetry Systolic blood pressure Diastolic blood pressure Provider Name and Address Organization Details Last Updated DateTime 167.64 cm 42.4 kg/m2 510536. 79 g 92 /min 98 % 98 % 129 mm[Hg] 86 mm[Hg] Nae Braun MA [facility] 5 12:44:36 Social History Question Answer Notes LastModified by Organizat ion Details LastModified Time Tobacco Smoking Status Never Smoker Meli Durant CMA null, [facility] 05/11/2017 12:15:48 Do You Have An Advance Directive? No Information not available 05/04/2019 Are You Blind Or Do You Have Difficulty Seeing? No Glasses Information not available 09/27/2021 What Is Your Level Of Caffeine Consumption? Occasional Information not available 09/27/2021 How Much Tobacco Do You Chew? None Information not available 05/04/2019 In The 14 Days Before Symptom Onset, Have You Had Close Contact With A Laboratory-confir med COVID-19 While That Case Was Ill? No Information not available 09/27/2021 In The 14 Days Before Symptom Onset, Have You Had Close Contact With A Person Who Is Under Investigation For COVID-19 While That Person Was Ill? No Information not available 09/27/2021 Have You Been To An Area Known To Be High Risk For COVID-19? No Information not available 09/27/2021 Are You Deaf Or Do You Have Serious Difficulty Hearing? No Information not available 09/27/2021 What Type Of Diet Are You Following? REGULAR Information not available 05/04/2019 Which Illicit Or Recreational Drugs Have You Used? None Information not available 05/04/2019 Education 2 Year College Informatio n not available 05/04/2019 What Is The Highest Grade Or Level Of School You Have Completed Or The Highest Degree You Have Received? [id number] Information not available 09/27/2021 Are There Any Guns Present In Your Home? Yes Information not available 05/04/2019 Hard Of Hearing Or Deaf In One Or Both Ears? No Information not available 05/04/2019 Legally Blind In One Or Both Eyes? No Information no t available 05/04/2019 Live Alone Or With Others? With Others Information not available 05/04/2019 Do You Have A High School Diploma Or Higher Education? Yes Information not available 09/27/2021 Do You Sometimes Have To Miss Your Medical Appointments Due To Difficult Getting Transportation? No Information not available 09/27/2021 Do You Feel Unfairly Treated Due To Things Such As Race, Age, Gender, Disability Or Some Other Reason? No Information not available 09/27/2021 Do You Feel Physically And Emotionally Safe While Living At Home? Yes Information not available 09/27/2021 Do You Feel Physically And Emotionally Safe In Your Neighborhood Or Other Public Places? Yes Information not available 09/27/2021 What Was The Date Of Your Most Recent Tobacco Screening? 01/03/2025 Information not available 01/03/2025 How Many Children Do You Have? 3 Information not available 05/04/2019 What Is Your Relationship Status? Single Information not available 09/27/2021 Do You Use Your Seat Belt Or Car Seat Routinely? Yes Information not available 09/27/2021 Seat Belts Used Routinely Yes Information not available 05/04/2019 Smoke Alarm In Home Yes Information not available 05/04/2019 Do You Have Smoke And Carbon Monoxide Detectors In Your Home? Yes Information not available 09/27/2021 Are You Passively Exposed To Smoke? No Information no t available 05/04/2019 How Much Tobacco Do You Smoke? No Information not available 05/04/2019 General Stress Level Medium Information not available 05/04/2019 Do You Use Sunscreen Routinely? Yes Information not available 09/27/2021 Has Tobacco Cessation Counseling Been Provided? Yes Information not available 11/21/2022 On What Date Was Tobacco Cessation Counseling Provided? 01/03/2025 Information not available 01/03/2025 How Many Years Have You Smoked Tobacco? 0 Information not available 05/04/2019 Sex: Female Functional Status Question Answer Note LastModified by Organizat ion Details LastModified Time Do you use any illicit or recreational drugs? No Information not available 08/30/2021 What is your level of alcohol consumption? None Information not available 08/30/2021 Do you or have you ever used smokeless tobacco? Never used smokeless tobacco Information not available 08/15/2020 Are you currently employed? No Information not available 05/04/2019 Are you able to care for yourself? Yes Information not available 05/04/2019 What is your occupation? unemployed Information not available 05/04/2019 Do you or have you ever used e-cigarettes or vape? Never used electronic cigarettes Information not available 08/15/2020 What is your exercise level? Occasional Information not available 09/27/2021 Mental Status Question Answer Note LastModified by Organization D etails LastModified Time Do you feel stressed (tense, restless, nervous, or anxious, or unable to sleep at night)? CU7948-3 Information not available 09/27/2021 Family History Relationship Description Onset Age of this Age Resolved Age Notes LastModified by Organization Details LastModified Time Father No current problems or disability [email or web address] Not available 06/25 12:14:16 Mother No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
== END 2025-03-02 13:39 | disposition home or self-care (01) ==
PROVIDERS: PCP Physician Assistant; Visit Provider Physician Assistant
DX: N64.4 Mastodynia (principal); I65.23 Occlusion and stenosis of bilateral carotid arteries
CPT/HCPCS: 77062; 77066; 93880; 93971; G0279

== ENCOUNTER 2025-04-13 09:00 | Outpatient (RCR) | payer OTHER, SELFPAY ==
--- NOTE | 2025-02-27 14:13 | OPREHPOC ---
Outpatient Therapy Plan of Care This is a Multidisciplinary Plan of Care that may contain components documented by all disciplines (PT, OT, and ST.) PT Problem 1 PT Problem #1 Knowledge Deficit PT Goal 1 Goal / Goal Update [place] with HEP Target Visit 4 PT Goal 2 Goal / Goal Update Report no pain greater than 2/10 for 2 consecutive weeks Target Visit 8 PT Problem 2 PT Problem #2 Impaired Range of Motion PT Goal 1 Goal / Goal Update 1. Demonstrate 40 degrees of sergio hip abduction for improved capsular mobility 2. Demonstrate -20 degrees sergio hamstring restriction with no radicular left leg symptoms Target Visit 8 PT Problem 3 PT Problem #3 Pain PT Goal 1 Goal / Goal Update Report no left leg radicular pain symptoms Target Visit 8
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
--- NOTE | 2025-03-09 17:06 | PCPTNOTE ---
Pt no call no showed her appointment today - [facility]
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
--- NOTE | 2025-03-23 10:13 | PCPTNOTE ---
Cancelled d/t schedule conflict per front office. AKS
--- NOTE | 2025-03-27 09:56 | OPREHPOC ---
Outpatient Therapy Plan of Care This is a Multidisciplinary Plan of Care that may contain components documented by all disciplines (PT, OT, and ST.) PT Problem 1 PT Problem #1 Knowledge Deficit PT Goal 1 Goal / Goal Update [place] with HEP Target Visit 4 Progress Met PT Goal 2 Goal / Goal Update Report no pain greater than 2/10 for 2 consecutive weeks 03/27/25: Pain still 3-4 at best Target Visit 8 Progress Partially Met PT Problem 2 PT Problem #2 Impaired Range of Motion PT Goal 1 Goal / Goal Update 1. Demonstrate 40 degrees of sergio hip abduction for improved capsular mobility 2. Demonstrate -20 degrees sergio hamstring restriction with no radicular left leg symptoms 03/27/25: Met HS length but lacking in abduction Target Visit 8 Progress Partially Met PT Problem 3 PT Problem #3 Pain PT Goal 1 Goal / Goal Update Report no left leg radicular pain symptoms Target Visit 8 Progress Met
--- NOTE | 2025-03-27 09:56 | PTOPPROG ---
Assessment and note entered by All John, PT Evaluation Information Assessment Status Progress ICD-10 Condition Codes (PT) Pain in low back M54.50 Onset 02/03/25 Subjective Information Reports that she had a fall on of last week. Had a miss step and fell backwards on her [place]. She had a couple days of setback but feels she is improving from that. Feels that the rotation and twisting activity that was bothering her to start are improved. Still has sporadic low back pain. Assessment PT Clinical Summary Patient has seen progress in hip mobility and reduced radiculopathy. Still struggling with intermittent back pain more local to the spine. Will continue to benefit form skilled therapy to address these deficits. Plan of Care Interventions Gait Training,Manual Therapy,Neuro Re-education, Therapeutic Activities,Therapeutic Exercise PT Services Indicated Yes Treatment Frequency and 2x/week for 6 visits Duration These treatments will address the objective and functional deficits as defined above. The patient will be advanced safely and appropriately in order for the patient to progress towards his/her prior level of function. Additional exercises will be introduced and as well as a comprehensive home exercise program upon discharge, if needed, ?to ensure carryover of functional gains achieved in the clinic. This treatment plan has been reviewed and agreement upon by the patient.
--- NOTE | 2025-04-20 13:01 | PCPTNOTE ---
Patient was a No Show/No Call for today's therapy appointment. No future appointments scheduled at this time.
--- NOTE | 2025-08-24 15:43 | PCPTNOTE ---
Patient last present for therapy on 03/17/25. Patient did not return to therapy and was discharged. Please refer to last treatment note for discharge status.
== END 2025-05-28 23:59 | disposition home or self-care (01) ==
LOC: ANHPT 09:00
PROVIDERS: PCP Physician Assistant; Visit Provider Physician Assistant
DX: M54.50 Low back pain, unspecified (principal)
CPT/HCPCS: 97110; 97140; 97161

== ENCOUNTER 2025-06-03 19:32 | Emergency (ER) | payer OTHER, SELFPAY ==
--- OUTSIDE RECORDS SUMMARY | 2025-06-03 19:35 | XMS_ITS | Encounter Summary ---
Author Organization [facility] Healthcare Address [address] [place] [address] Care Team Providers Care Manager Sterile Processing Name Role Phone Marcy Carnes MD Primary Care Provider [phone] Suzanna Shepard Primary Care Provider + Encounter Details Date Type Department Care Team (Latest Contact Info) Description 07/02/2020 Ophth Exam Ophthalmology Diana Babin MD [address] [place] [address] Social History Tobacco Use Types Packs/Day Years Used Date Smoking Tobacco: Never Smokeless Tobacco: Never Comments Unknown Sex and Gender Information Value Date Recorded Sex Assigned at Not on file Legal Sex Female 12:59 AM [employer] Gender Identity Not on file Sexual Orientation Not on file documented as of this encounter Plan of Treatment Not on file documented as of this encounter Visit Diagnoses Not on filedocumented in this encounter Eye Exam Visual Acuity Right eye Left eye Near cc 20/20 20/20 Tonometry (Tonopen, 7:06 AM) Right eye Left eye Pressure 20 20 Pupils Dark Light Shape React APD Right eye 4 2 Round Brisk None Left eye 4 2 Round Brisk None Visual Kaiser (Counting fingers) Right eye Left eye Full Full Extraocular Movement Right eye Left eye Full Full Neuro/Psych Oriented x3: Yes Mood/Affect: Normal Dilation Both eyes: 1% Tropicamide, 2 .5% Phenylephrine @ 7:06 AM External Exam Right eye Left eye External Normal Normal Slit Lamp Exam Right eye Left eye Lids/Lashes Normal Normal Conjunctiva/Sclera overall pretty white /quiet, few small cystic bubbles at ~9 oclock with overlying conjunctival vessels. No glass particles on everted lid. White and quiet Cornea trace spee inferiorly, otherwise clear Clear Anterior Chamber Deep and quiet Deep and quiet Iris Round and reactive Round and ross ctive Lens Clear Clear Vitreous Normal Normal Fundus Exam Right eye Left eye Disc Normal no hemorrhage s or edema or pallor Normal no hemorrhages or edema or pallor C/D Ratio 0.1 0.1 Macula Normal flat attached Normal flat attached Vessels mild tortuosity of vessels mild tortuosity of vessels Periphery Normal no lesions RT or RDs one superotemporal yellow area of pigment or drusen, no RT or RDs Care Teams Manager Sterile Processing Relationship Specialty Start Date End Date Marcy Carnes MD PCP - General Family Medicine 03/16/20 04/24/23 Suzanna Shepard PA PCP - General Physician Plate Driller 04/25/23 documented as of this encounter
--- OUTSIDE RECORDS SUMMARY | 2025-06-03 19:35 | XMS_ITS | Clinical Summary ---
Author Organization [facility] Address [address] [place] [address] Care Team Providers Care Intraoperative Neuro Tech Name Role Phone Suzanna Shepard Primary Care Provider + Allergies Active Allergy Reactions Criticality Noted Date Comments Metoprolol Itching Low 12/25/2021 Medications dulaglutide (TRULICITY) 0.75 mg/0.5 mL pen injectorIndicat ions:type 2 diabetes mellitus Inject 0.5 mL (0.75 mg total) under the skin every 7 days Thursday Active lisinopril-hydr oCHLOROthiazide (ZESTORETIC) 20-12.5 mg per tablet Take 2 tablets by mouth nightly Active metFORMIN XR (GLUCOPHAGE XR) 500 mg 24 hr tabletIndicatio ns:type 2 diabetes mellitus Take 1 tablet (500 mg total) by mouth nightly 2 Active polyethylene glycol (GoLYTELY) 236-22.74-6.74 -5.86 gram solution 03/28 at 6:00 PM drink 1/2 jug of bowel prep over 2 hours. 03/29 at 4:00 AM drink remaining 1/2 jug of bowel prep over 2 hours until finished. 4000 mL 5 Active Active Problems Problem Noted Date Diagnosed Date Traumatic complete tear of left rotator cuff 09/2024 Biceps tendinitis of left upper extremity 2023 Type 2 diabetes mellitus wit h stage 3a chronic kidney disease, without long-term current use of insulin 02/24/2024 Overview (09/13/2024): COMPREHENSIVE METABOLIC PANEL Order: [id number] Component Ref Range & Units 02/04/241950 Glucose 70 - 105 mg/dL 137 High Sodium 136 - 145 mmol/L 142 Potassium 3.5 - 5.1 mmol/L 4.0 Chloride 98 - 107 mmol/L 108 High CO2 22 - 29 mmol/L 25 Calcium 8.4 - 10.4 mg/dL 9.7 Anion Gap 6 - 16 mmol/L 9 BUN 7 - 26 mg/dL 15 Creatinine 0.57 - 1.11 mg/dL 1.13 High Alkaline Phosphatase 40 - 150 U/L 111 ALT 0 - 55 U/L 22 AST 5 - 34 U/L 22 Protein Total 6.4 - 8.3 gm/dL 7.4 Albumin 3.4 - 5.0 gm/dL 3.8 Bilirubin Total 0.2 - 1.2 mg/dL 0.5 eGFR by CKD-EPI >=90 mL/min/1.73 m2 59 Low Last Assessment & Plan: Condition: stable Source of diagnosis: Medication and Lab Data: Result eGFR. Date 02/04/2024. Source: CareEverywhere/Media Follow up in: three months with PCP Adrenal adenoma 11/18/2023 Foot callus 10/14/2023 Onychomycosis 10/14/2023 Cellulitis of left lower extremity 04/27/2023 Leg wound, left, initial encounter 04/25/2023 Morbid (severe) obesity due to excess calories 0 03/14/2023 Overview (09/13/2024): Last Assessment & Plan: Condition: stable Source of diagnosis: Screenings/Questionnaires Co-morbidities: N/A BMI > 40, Type 2 Diabetes and Hypertension Follow up in: three months Cardiomegaly 01/06/2022 Hyperthyroidism 01/06/2022 Nonhealing ulcer of right lower leg 01/06/2022 Pulmonary hypertension 01/06/2022 Chest pain 01/06/2022 Benign hypertension 01/06/2022 Hypertension associated with type 2 diabetes [facility] 12/25/2021 Overview (09/13/2024): Last Assessment & Plan: Condition: stable Source of diagnosis: Vital Signs, Medication and Diagnosis confirmed from PCP record and currently active Follow up in: three months with PCP Adrenal nodule 10/24/2021 Overview (10/24/2021): 9 mm indeterminate left adrenal nodule. Recommend further characterization with adrenal protocol CT Mass of left adrenal gland 09/26/2021 Morbid obesity 08/29/2021 DM (diabetes mellitus), type 2 08/24/2020 Dental abscess 05/24/2020 Vitamin D deficiency 07/11/2018 Overview (09/13/2024): Last Assessment & Plan: Condition: asymptomatic Source of diagnosis: Medication and Diagnosis confirmed from PCP record and currently active Follow up in: three months Morbid obesity with BMI of 45.0-49.9, adult 04/2018 Acute urinary tract infection 05/04/2017 Anxiety 12/08/2013 Essential hypertension 12/08/2013 Essential hypertension 12/08/2013 Chest pain 12/07/2013 Shortness of breath 12/07/2013 Cholecystitis 01/13/2012 Headache 01/13/2012 Headache 01/13/2012 Pneumonia 03/25/2011 Seasonal allergies 03/25/2011 Encounters Date Type Department Care Team Description 03/23/2025 Telephone [facility] Specialty Services [address] [place] [phone] Ellyn Huerta, RN from Last 3 Months Surgical History Surgery Date Site/Laterality Comments FOOT SURGERY 10/12/2003 - 10/11/2004 Right CHOLECYSTECTOMY 10/12/2008 - 10/11/2009 Medical History Medical History Date Comments Arthritis Diabetes mellitus (HCC) Hypertension Obesity Family History Medical History Relation Name Comments Alcohol abuse Father Diabetes Father Gout Father Breast cancer Maternal Grandmother Cause of Arthritis Mother Relation Name Status Comments Father Maternal Grandmother Mother Social History Tobacco Use Types Packs/Day Years Used Date Smoking Tobacco: Never Smokeless Tobacco: Never AUDIT-C Answer Date Recorded Q1: How often do you have a drink containing alc ohol? Monthly or less 09/27/2024 Q2: How many drinks containi ng alcohol do you have on a typical day when you are drinking? 1 or 2 09/27/2024 Q3: How often do you have si x or more drinks on one occasion? Never 09/27/2024 Personal Safety Answer Date Recorded Have you ever been in or are you currently in a harmful physical or emotional relationship or is someone making you feel afraid or unsafe? Denies 04/25/2023 Comments No Sex and Gender Information Value Date Recorded Sex Assigned at Not on file Legal Sex Female 12:59 AM CNC SET UP OPERATOR Gender Identity Not on file Sexual Orientation Not on file Obstetrics History Para Term AB IAB SAB Ectopic Multiple Livin g Live Births 3 3 3 Date Outcome GA Total Labor Labor/2nd/3rd Weight Sex Type Anes PTL Kristi A1 A5 Name Clin Term Term Term Last Filed Vital Signs Vital Sign Reading Time Taken Comments Blood Pressure 133/92 04/27/2023 8:14 AM CDT Pulse 84 04/27/2023 8:14 AM CDT Temperature 36.7 C (98 F) 04/27/2023 8:14 AM CDT Respiratory Rate 18 04/27/2023 4:01 AM CDT Oxygen Saturation 100% 04/27/2023 8:14 AM CDT Inhaled Oxygen Concentration - - Weight 113.4 kg (250 lb) 09/27/2024 3:40 PM CNC SET UP OPERATOR Height 167.6 cm (5' 6) 09/27/2024 3:40 PM CNC SET UP OPERATOR Body Mass Index 40.35 09/27/2024 3:40 PM CNC SET UP OPERATOR Plan of Treatment Health Maintenance Due Date Last Done Comments Albumin Creatinine Ratio, Urine 1973 Cervical Cancer Screening 1973 Colon Cancer Screening-Colonoscopy 1973 Depression Screening 1973 Hepatitis C Screening 1973 Foot Exam 1973 Hepatitis B Screening 1991 Regular Well Visit/Exam 18-64 1991 Pneumococcal vaccine <65 (1 of 2 - PCV) 1992 Dilated Eye Exam 07/02/2021 07/02/2020 Lipid Panel 01/07/2023 01/07/2022 Zoster Vaccine (1 of 2) 2023 eGFR 04/27/2024 04/27/2023, 04/11, 04/25/2023, Additional history exists Breast Cancer Screening-Mammogram 02/14/2025 02/15/2024, 11/16/2023, 11/16/2023, Additional history exists Influenza Vaccine (#1) 2025 Hemoglobin A1C 07/01/2025 12/29/2024, 04/11, 01/06/2022 DTaP/Tdap/Td Vaccine (3 - Td or Tdap) 02/14/2029 02/14/2019, 02/07/2019 Procedures Procedure Name Priority Date/Time Associated Diagnosis Comments HEMOGLOBIN A1C Routine 12/29/2024 2:19 PM CDT H/O diabetes mellitus Preoperative testing SCREENING MAMMOGRAM BILATERAL W LEONOR Schedule Routine, Read Routine (OP Routine) 11/16/2023 3:10 PM CNC SET UP OPERATOR Screening mammogram, encounter for EGFR Routine 04/27/2023 3:17 AM CDT from Last 3 Months or Most Recently Relevant to Health Maintenance Results * (ABNORMAL) Hemoglobin A1c (12/29/2024 2:19 PM CDT) Hgb A1C 7.9(H) 4.0 - 5.6 % Estimated Average Glucose 180 mg/dL [facility] Comment: The ADA recommends reporting an estimated Average Glucose (eAG) with all Hemoglobin A1c results using the equation derived from a study of 507 normal and diabetic adults. Minority populations were underrepresented and children were not included. (Diabetes Care 2020; 43(S1): S66-S76). The eAG is not equivalent to a fasting glucose. Blood 12/29/2024 2:19 PM CDT 12/29/2024 3:51 PM CDT us Wolfgang Fischer MD LAB BLOOD ORDERABLES Final Result [facility] Department [place] [address] * Screening Mammogram Bilateral W Leonor (11/16/2023 3:10 PM CNC SET UP OPERATOR) Anatomical Region Laterality Modality Breast Bilateral Mammography Impressions 11/20/2023 3:14 PM CNC SET UP OPERATOR BI-RADS ATLAS category (overall): 1 - Negative There is no mammographic evidence of malignancy. A 1 year screening mammogram is recommended. The patient has been or will be contacted. We recommend annual screening mammography for women at average risk of breast cancer beginning at age 40, based on guidelines of the [employer] (ACR Practice Parameter for the Performance of Screening and Diagnostic Mammography) and [employer]. For women with and elevated risk of breast cancer, please refer to the ACR Practice Parameter for specific screening recommendations. The patient will be entered into a reminder system with a target due date of 1 year for her next screening exam. Narrative 11/20/2023 3:14 PM CNC SET UP OPERATOR Screening Mammogram Bilateral W Leonor: 11/16/23 The study was acquired using full field digital technology and interpreted from soft copy. 2D digital mammographic views, as well as 3D digital tomosynthesis were performed in the CC and MLO projections. CLINICAL: Screening mammogram, encounter for. No relevant medical history has been documented for this patient. History of breast cancer in Maternal Grandmother. COMPARISONS: 08/10/2021 Breast Imaging Screening Outside Reference 02/17/2019 Breast Imaging Screening Outside Reference BREAST TISSUE: The breasts are almost entirely fatty. FINDINGS: There is no new suspicious finding in either breast on mammogram. Suzanna SEARS IMG MAMMO PROCEDURES Fin al Result * eGFR (04/27/2023 3:17 AM CDT) eGFR 58 mL/min/1. 73 m2 [facility] Comment: Interpretive Data Reference Interval Normal >/= 90 mL/min/1.73m2 Mildly decreased* 60 - 89 mL/min/1.73m2 Mildly to moderately decreased 45 - 59 mL/min/1.73m2 Moderately to severely decreased 30 - 44 mL/min/1.73m2 Severely decreased 15 - 29 mL/min/1.73m2 Kidney Failure < 15 mL/min/1.73m2 *Relative to young adult level Estimated glomerular filtration rate is determined by the 2020 CKD-EPI equation recommended by the National Kidney Foundation (A Unifying Approach to GFR Estimation: Recommendations of the NKF-ASK Task Force on Reassessing the Inclusion of Race in Diagnosing Kidney Disease, JASN 2020). The CKD-EPI equation should not be used for patients with unstable renal function and has not been validated in children and those over 70. Current interpretive data was last reviewed 2021. Blood 04/27/2023 3:17 AM CDT 04/27/2023 3:28 AM CDT Wellington Vences MD LAB BLOOD ORDERABLES Final Resul t [facility] [address] Department [place] [address] from Last 3 Months or Most Recently Relevant to Health Maintenance Insurance Advance Directives For more information, please contact: [phone] * Full Code (Latest Code Status on File) Date Activated Date Inactivated Comments 04/25/2023 9:11 AM 04/27/2023 3:56 PM Care Teams Intraoperative Neuro Tech Relationship Specialty Start Date End Date Suzanna Shepard PA PCP - General Physician Cash Applications Analyst 04/25/23
[2025-06-03 19:37] VITALS: BP 136/96; PULSE 111; RESP 17; TEMP 36.6; O2SAT 94
--- NOTE | 2025-06-03 19:46 | ED.SKABFB ---
HPI - Skin/Abscess/Foreign Bdy General Chief complaint: Skin/Abscess/Foreign Body Stated complaint: Poison adore all over Time Seen by Provider: 06/03/25 19:40 History of Present Illness HPI narrative: 49-year-old female presents with rash to face, upper extremities, and torso. Patient states rash started yesterday. Patient states she is highly allergic to poison adore. Patient denies shortness of breath, tongue swelling, sore throat. Patient has not taken any medication for the symptoms Onset (ago): day(s) (1) Exacerbating factors: none Related Data Home Medications ?Medication ?Instructions ?Recorded ?Confirmed ?Last Taken ?Type dulaglutide 0.75 mg/0.5 mL 0.75 mg subcut WEEKLY 03/13/23 03/19/23 Unknown History subcutaneous pen injector (Trulicity) hydrochlorothiazide 25 mg tablet 25 mg PO DAILY 03/19/23 03/19/23 Unknown History metformin 500 mg tablet,extended 500 mg PO DAILY 03/19/23 03/19/23 Unknown History release 24 hr Allergies Allergy/AdvReac Type Severity Reaction Status Date / Time No Known Allergies Allergy Verified 06/03/25 19:42 Review of Systems Review of Systems: A 10 system review of systems was completed on the patient and is negative except for what is stated in the HPI. Nursing and ancillary documentation was reviewed. [facility] Past Medical History Medical History (Updated 06/03/25 @ 19:49 by Paresh Bragg APRN) History of diabetes mellitus Hypertension Social History Social History (Updated 01/13/24 @ 00:57 by Meeta Lawson PA-C) Substance use: never Gender identity (if verbalized by the patient): Female Exam Narrative: GENERAL: Well-appearing, well-nourished, and in no acute distress. HEAD: Normocephalic, atraumatic. EYES: PERRLA and EOMI. ENT: Nares clear, no rhinorrhea or epistaxis. Mucous membranes moist. NECK: Supple. CHEST: Clear to auscultation. No respiratory distress. HEART: Regular rate and rhythm. No murmur heard. Normal peripheral pulses. ABDOMEN: Soft, nontender, nondistended, normal active bowel sounds. EXTREMITIES: Normal range of motion. No edema. SKIN: Warm, dry, red patchy rash to face and UE NEURO: No focal deficits. Alert and oriented x3. PSYCH: Normal mood and affect. Course Course Emergency Course: Patient requests an injection of steroids. Vital Signs Vital signs: Vital Signs Temperature 36.6 C 06/03/25 19:37 Pulse Rate 111 H 06/03/25 19:37 Respiratory Rate 17 06/03/25 19:37 Blood Pressure 136/96 H 06/03/25 19:37 Pulse Oximetry 94 06/03/25 19:37 Temperature 36.6 C 06/03/25 19:37 Pulse Rate 111 H 06/03/25 19:37 Respiratory Rate 17 06/03/25 19:37 Blood Pressure 136/96 H 06/03/25 19:37 Pulse Oximetry 94 06/03/25 19:37 MDM - Skin/Abscess/Foreign Bdy MDM Narrative Medical decision making narrative: Will given injection of Solu-Medrol. Will start on Medrol Dosepak tomorrow. Differential Diagnosis Differential diagnosis: Likely cellulitis, insect bites and contact dermatitis Discharge Plan Discharge Clinical Impression: Contact dermatitis Patient Disposition: Home Condition: Stable Instructions: Antibiotic Form, Contact Dermatitis (ED) Additional Instructions: Take medication as prescribed Return for worsening symptoms Take [id number] Benadryl for itching Patient Language: Romansh Prescriptions: New methylprednisolone [Medrol (Kevin)] 4 mg tablets,dose pack See Rx Instructions .ROUTE .COMPLEX Qty: 21 0RF Rx Instructions: for 6 days start on 06/04/2025 No Action hydrochlorothiazide 25 mg tablet 25 mg PO DAILY metformin 500 mg tablet extended release 24 hr 500 mg PO DAILY methylprednisolone [Methylpred DP] 4 mg tablets,dose pack 4 mg PO DAILY Qty: 21 0RF Rx Instructions: Dose pack directions Trulicity 0.75 mg/0.5 mL pen injector 0.75 mg SUBCUT WEEKLY amoxicillin 875 mg tablet 875 mg PO Q12H 10 Days Qty: 20 0RF amoxicillin-pot clavulanate 875-125 mg tablet 1 tablet PO Q12H 5 Days Qty: 10 0RF Follow-up/Referrals: Devyn,RENU Flores [Primary Care Provider, Family Practice] Time of Disposition: 19:50
--- OUTSIDE RECORDS SUMMARY | 2025-06-03 20:05 | XMS_ITS | Encounter Summary ---
Author Organization [facility] Address [address] [place] [address] Care Team Providers Care Global Expansion Sales Director Name Role Phone Marcy Carnes MD Primary Care Provider [phone] Encounter Details Date Type Department Care Team (Late st Contact Info) Description 12/12/1999 Outpatient Historical HIS [facility] DR. 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
--- OUTSIDE RECORDS SUMMARY | 2025-06-03 20:05 | XMS_ITS | Clinical Summary ---
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 Gender Identity Not on file Sexual Orientation [...] 12:38 AM CDT Height 167.6 cm (5' 6) 06/17/2024 12:38 AM CDT Body Mass Index [...] 01/07/2022 ZOSTER VACCINE (1 of 2) 2023 DIABETES HBA1C Q 6 MONTHS 08/26/2024 02/24/2024, BREAST CANCER SCREENING 11/16/2024 11/16/19 24, 11/16/2023, 08/10/2021, Additional history exists INFLUENZA VACCINE (#1) 2025 DTAP/TDAP/TD VACCINES (3 - T d or Tdap) 02/14/2029 02/14/2019, 02/07/2019 Procedures Procedure Name Priority Date/Time Associated Diagnosis Comments LIPID RFLX Routine 01/07/2022 11:52 AM CDT HEMOGLOBIN A1C Routine 01/06/2022 10:32 AM CDT from Last 3 Months or Most Recently Relevant to Health Maintenance Results * (ABNORMAL) LIPID RFLX (01/07/2022 11:52 AM CDT) CHOLESTEROL 149 <200 mg/dL 01/07/2022 1:02 PM CDT [facility] [employer] [facility] TRIGLYCERIDE 179(H) <150 mg/dL 01/07/2022 1:02 PM CDT [facility] HDL 31(L) 40 - 59 mg/dL 01/07/2022 1:02 PM CDT [facility] LDL CALCULATED 82 <100 mg/dL 01/07/2022 1:02 PM CDT [facility] NON-HDL CHOLESTEROL 118 <130 mg/dL 01/07/2022 1:02 PM T [facility] Blood Venipuncture / Unknown 01/07/2022 11:52 AM CDT 01/07/2022 12:41 PM CDT [facility] - 01/07/2022 1:02 PM CDT TOTAL CHOLESTEROL [...] Muñiz NP CHEMISTRY ORDERABLES Final Resul t [facility] [id number] [place] [address] * (ABNORMAL) HEMOGLOBIN A1C (01/06/2022 10:32 AM CDT) HEMOGLOBIN A1C 7.7(H) <=5.6 % 01/06/2022 4:34 PM CDT [facility] EST. AVG GLUCOSE, A1C 174 mg/dL 01/06/2022 4:34 PM CDT [facility] [employer] [facility] Blood Venipuncture / Unknown 01/06/2022 10:32 AM CDT 01/06/2022 10:46 AM CDT Narrative [facility] [employer] [facility] - 01/06/2022 4:34 PM CDT HGB A1C INTERPRETATION NORMAL: <5.7% PRE-DIABETES: 5.7 - 6.4% DIABETES: 6.5% OR GREATER Cielo Muñiz NP CHEMISTRY ORDERABLES Final Resul t Performing Organization Address City/[facility] Co de Phone Number [facility] [employer] [facility]# [id number] [place] [address] from Last 3 Months or Most Recently Relevant to Health Maintenance Insurance [employer] [place] [employer] Advance Directives For more information, please contact: [phone] * Full Code (Latest Code Status on File) Date Activated Date Inactivated Comments 01/06/2022 4:12 PM 01/07/2022 4:15 PM Care Teams Chief Green Officer Relationship Specialty Start Date End Date Marcy Carnes MD PCP - General Family Practice 06/19/19
--- OUTSIDE RECORDS SUMMARY | 2025-06-03 20:05 | XMS_ITS | Encounter Summary ---
Author Organization [facility] Address [address] [place] [address] Care Team Providers Care Training And Development Director Name Role Phone Marcy Carnes MD Primary Care Provider [phone] Encounter Details Date Type Department Care Team (Late st Contact Info) Description 11/28/1999 Outpatient Historical HIS [facility] DR. 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
--- OUTSIDE RECORDS SUMMARY | 2025-06-03 20:05 | XMS_ITS | Encounter Summary ---
Author Organization [facility] Address [address] [place] [address] Care Team Providers Care Instrument Mechanics Supervisor Name Role Phone Marcy Carnes MD Primary Care Provider [phone] Suzanna Shepard Primary Care Provider + Encounter Details Date Type Department Care Team (Latest Contact Info) Description 07/02/2020 Ophth Exam Ophthalmology Diana Babin MD [address] [place] [address] Social History Tobacco Use Types Packs/Day Years Used Date Smoking Tobacco: Never Smokeless Tobacco: Never Comments Unknown Sex and Gender Information Value Date Recorded Sex Assigned at Not on file 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
--- OUTSIDE RECORDS SUMMARY | 2025-06-03 20:05 | XMS_ITS | Clinical Summary ---
Author Organization [facility] Address [address] [place] [address] Care Team Providers Care Cattle Dehorner Name Role Phone Suzanna Shepard Primary Care [...] 02/24/2024 Overview (09/13/2024): COMPREHENSIVE METABOLIC PANEL Order: [id number] Component Ref Range & Units 02/04/241950 Glucose [...] Type Department Care Team Description 03/23/2025 Telephone [facility] Specialty Services [address] [place] [id number] Ellyn Huerta, RN from Last 3 Months [...] on file Legal Sex Female 12:59 AM ARTIST RELATIONSHIP MANAGER Gender Identity Not on file Sexual Orientation [...] 113.4 kg (250 lb) 09/27/2024 3:40 PM ARTIST RELATIONSHIP MANAGER Height 167.6 cm (5' 6) 09/27/2024 3:40 PM ARTIST RELATIONSHIP MANAGER Body Mass Index 40.35 09/27/2024 3:40 PM ARTIST RELATIONSHIP MANAGER Plan of Treatment Health Maintenance Due Date [...] Read Routine (OP Routine) 11/16/2023 3:10 PM ARTIST RELATIONSHIP MANAGER Screening mammogram, encounter for EGFR Routine 04/27/2023 [...] Fischer MD LAB BLOOD ORDERABLES Final Result [facility] Department [place] [address] * Screening Mammogram Bilateral W Leonor (11/16/2023 3:10 PM ARTIST RELATIONSHIP MANAGER) Anatomical Region Laterality Modality Breast Bilateral Mammography Impressions 11/20/2023 3:14 PM ARTIST RELATIONSHIP MANAGER BI-RADS ATLAS category (overall): 1 - Negative There is no mammographic evidence of malignancy. A 1 year screening mammogram is recommended. The patient has been or will be contacted. We recommend annual screening mammography for women at average risk of breast cancer beginning at age 40, based on guidelines of the [employer] (ACR Practice Parameter for the Performance of Screening and Diagnostic Mammography) and [employer]. For women with and elevated risk of breast cancer, please refer to the ACR Practice Parameter for specific screening recommendations. The patient will be entered into a reminder system with a target due date of 1 year for her next screening exam. Narrative 11/20/2023 3:14 PM ARTIST RELATIONSHIP MANAGER Screening Mammogram Bilateral W Leonor: 11/16/23 The [...] CDT) eGFR 58 mL/min/1. 73 m2 [facility] Comment: Interpretive Data Reference Interval Normal >/= [...] LAB BLOOD ORDERABLES Final Resul t [facility] [address] Department [place] [address] from Last 3 Months or Most Recently Relevant to Health Maintenance Insurance Advance Directives For more information, please contact: [phone] * Full Code (Latest Code Status on File) Date Activated Date Inactivated Comments 04/25/2023 9:11 AM 04/27/2023 3:56 PM Care Teams Cattle Dehorner Relationship Specialty Start Date End Date Suzanna Shepard PA PCP - General Physician Social Media Executive 04/25/23
--- NOTE | 2025-06-03 20:24 | PC.NURSE ---
RN was called to room d/t pt reporting concern for pain to right arm, worse with movement approximately 15 minutes after steroid injection. Pt reported not having much pain initially after injection. RN explained that there can be some discomfort when medication is absorbing into the tissue and the injection was into the muscle so pain with movement can be expected. There is no significant redness or swelling to injection site. Color to arm and finger tips are appropriate for ethnicity. Pt provided with ice pack to use later on after medication has mostly absorbed. Pt denies additional concerns. All questions answered and concerns addressed.
== END 2025-06-03 20:29 | disposition home or self-care (01) ==
LOC: ANHED 20:03
PROVIDERS: Emergency Provider Nurse Practitioner Family; PCP Physician Assistant
DX: L25.9 Unspecified contact dermatitis, unspecified cause (principal); I10 Essential (primary) hypertension; E11.9 Type 2 diabetes mellitus without complications; Z79.85 Long-term (current) use of injectable non-insulin antidiabetic drugs; Z79.84 Long term (current) use of oral hypoglycemic drugs
CPT/HCPCS: 96372; 99283; J2919